=== PATIENT | female | born 1990 | race Two or more races ===

== ENCOUNTER 2025-03-12 09:08 | Emergency (ER) | payer MEDICAID, SELFPAY ==
[2025-03-12 09:09] VITALS: BMI 43.5
[2025-03-12 09:23] VITALS: BP 159/90; PULSE 97; RESP 18; TEMP 36.3; O2SAT 97
--- NOTE | 2025-03-12 09:25 | XR_ITS ---
Examination: Complete OB ultrasound greater than 14 weeks Date and time of exam: March 12, 2025 0950 hours INDICATIONS: Patient fell today with into the pelvis, pelvic pain Findings: Viable intrauterine single fetus with single amniotic sac presentation cephalic Cardiac motion 148 BPM Placenta posterior fundal grade 1 no abruption Amniotic fluid volume adequate Cervix 3.4 cm Right ovary 4.4 cm arterial flow Left ovary 4.0 cm arterial flow. Composite estimated gestational age based on BPD, head circumference, abdominal circumference, femur length is 17 weeks 5 days Estimated weight 201 g. Survey of intracranial anatomy, spinal anatomy, abdominal anatomy, four-chamber heart performed with no abnormalities identified. Impression: Viable intrauterine gestation cephalic presentation.
--- NOTE | 2025-03-12 09:26 | EDNOTE_ITS ---
ED OB Contraction Preg RMI/HPI General Chief complaint: Fall Stated complaint: FALL, HIT ABD, 19 WEEKS Time Seen by Provider: 03/12/25 09:13 Source: patient Arrival date/time: 03/12/25 09:08 34-year-old female with no known medical history presents to the emergency room with a chief complaint of a ground-level fall and tenderness to her pelvic area. Patient is currently 19 weeks . Mode of arrival: ambulatory Limitations: no limitations Related Data Home Medications ?Medication ?Instructions ?Recorded ?Confirmed prenat.vits,mireille,[id number] 1 tab PO QDAY 04/07/23 04/07/23 Previous Rx's ?Medication ?Instructions ?Recorded nifedipine 30 mg tablet,extended 60 mg (2 x 30 mg) PO QDAY 30 days 04/09/23 release 24 hr #60 tabs Allergies Allergy/AdvReac Type Severity Reaction Status Date / Time No Known Allergies Allergy Verified 03/12/25 09:10 Review of Systems Review of Systems Systems Reviewed: All systems reviewed, normal except as documented Constitutional Constitutional: Reports system reviewed and no additional complaints, except as documented, Denies fatigue, Denies fever(s), Denies headache(s) and Denies weakness Eyes Eyes: Reports system reviewed and no additional complaints, except as documented, Denies blurry vision and Denies change in vision ENT Ears, Nose, Mouth, and Throat: Reports system reviewed and no additional complaints, except as documented, Denies otalgia, Denies headache(s), Denies nasal congestion, Denies throat swelling and Denies vertigo Cardiovascular Cardiovascular: Reports system reviewed and no additional complaints, except as documented, Denies chest pain, Denies dyspnea and Denies dyspnea on exertion Respiratory Respiratory: Reports system reviewed and no additional complaints, except as documented, Denies chest congestion, Denies cough, Denies dyspnea, Denies dyspnea on exertion and Denies wheezing Gastrointestinal Gastrointestinal: Reports system reviewed and no additional complaints, except as documented, Denies abdominal pain, Denies cramping, Denies nausea and Denies vomiting Genitourinary Genitourinary: Reports system reviewed and no additional complaints, except as documented Musculoskeletal Musculoskeletal: Reports system reviewed and no additional complaints, except as documented and Denies back pain Integumentary/Breasts Skin/Breast: Reports system reviewed and no additional complaints, except as documented and Denies wounds Neurologic Neurologic: Reports system reviewed and no additional complaints, except as documented, Denies confusion, Denies headache(s), Denies lack of coordination, Denies vertigo and Denies weakness Psychiatric Psychiatric: Reports system reviewed and no additional complaints, except as documented, Denies anxiety, Denies confusion, Denies depression, Denies paranoia, Denies suicidal ideation and Denies tactile hallucinations Endocrine Endocrine: Reports system reviewed and no additional complaints, except as documented and Denies fatigue Hematologic/Lymphatic Hematologic/Lymphatic: Reports system reviewed and no additional complaints, except as documented and Denies lymphadenopathy Allergic/Immunologic Allergic/Immunologic: Reports system reviewed and no additional complaints, except as documented, Denies throat swelling, Denies urticaria and Denies wheezing Past Medical History Past Medical History NEUROLOGIC: Negative Neurological Disorders, Cerebrovascular Accident, Transient Ischemic Attacks (TIA), Dementia, Alzheimer's Disease, Parkinson's Disease, Brain Tumor, Meningitis, Seizures, Epilepsy, Multiple Sclerosis, Cerebral Palsy, Amyotrophic Lateral Sclerosis (ALS/Nikki Gehrig's), Guillain-[place] Syndrome, Spina Bifida, Paralysis, Peripheral Neuropathy, Cerrato's Palsy, Subdural Hematoma, Migraine, Head Trauma, Spinal Cord Injury or Traumatic Brain Injury CARDIAC: Positive Cardiac Disorders and Hypertension (in last ); Negative Congestive Heart Failure RESPIRATORY: Negative Chronic Obstructive Pulmonary Disease (COPD), Asthma or Bronchitis GASTROINTESTINAL: Positive Gastrointestinal Disorders (hx gallstones) and Obesity; Negative Hepatitis, Cirrhosis, Pancreatitis, Celiac Disease, Gall Bladder Disease, Gastrointestinal Bleed, Esophageal Varices, Castle's Esophagus, Colitis, Ulcerative Colitis, Diverticulitis, Diverticulosis, Ulcer, Colorectal Cancer, Irritable Bowel, Crohn's Disease, Obstructive Bowel, Hiatal Hernia, Hemorrhoids or Gastroesophageal Reflux Disease GENITOURINARY: Negative Genitourinary Disorders, Renal Disease, Kidney Stones, Polycystic Kidney Disease, Neurogenic Bladder, Inguinal Hernia, Dialysis, Prostate Cancer or Benign Prostatic Hyperplasia REPRODUCTIVE: Negative Breast Cancer, Endometriosis, Pelvic Inflammatory Disease, Previous Pregnancies, Testicular Cancer or Uterine Prolapse MUSCULOSKELETAL: Negative Musculoskeletal Disorders, Muscular Dystrophy or Bone Cancer ENT: Negative Cataracts, Glaucoma, Blind, Retinal Detachment, Macular Degeneration, Ear Infection, Deafness, Head Trauma or Eye Prosthesis ENDOCRINE: Positive Endocrine Disorders; Negative Diabetes Mellitus Type 1, Diabetes Mellitus Type 2, Hypoglycemia, [place]'s Syndrome, [place]iver[place]'s Disease, Hyperthyroidism, Hypothyroidism, Parathyroid Disease, Pituitary Disease, Systemic Lupus Erythematosus, Syndrome of Inappropriate Antidiuretic Hormone (SIADH), Adrenal Disease or Graves' Disease HEMATOLOGIC: Positive Anemia; Negative Blood Disorders, Leukemia, Hemophilia, Thalassemia, Sickle Cell Disease or Clotting Problems PSYCHO/SOCIAL: Negative Psychiatric Problems, Schizophrenia, Recreational Drug Use, Bipolar Disorder, Depression, Anxiety, Behavior Problems, Self-Mutilation, Attention Deficit Disorder, Attention Deficit Hyperactivity Disorder, Depression, Post Traumatic Stress Disorder or Eating Disorder OTHER HISTORY: Negative Hospitalization, Autoimmune Disease, Down Syndrome, Autism, Developmental Delay, Shingles, Falls, Blood Transfusions, Blood Transfusion Reaction, Anesthesia Reactions, Organ Transplant, Chemotherapy, Radiation Therapy, Hyperbaric Therapy, MRSA, VRSA, Vancomycin-Resistant En terococci, Human Immunodeficiency Virus (HIV), Chicken Pox, Measles, Mumps, Rubella (Qatari Measles), Pertussis, Clostridium Difficile, Cancer, Breast Cancer, Cervical Cancer, Colorectal Cancer, Lung Cancer, Ovarian Cancer, Prostate Cancer or Testicular Cancer Family History FAMILY HISTORY: Positive Family Gastrointestinal Problems (father,mother, sister gallbladder issues); Negative Family Psychiatric Problems, Family Respiratory Disorders, Family Cardiac Disorders, Family Cancer, Family Surgery or Family Anesthesia Reaction Surgical History SURGICAL: Negative Cardiac Surgery, Open Heart Surgery, Coronary Artery Bypass Graft, Valve Replacement, Vascular Surgery, Coronary Stent, Cardiac Catheterization, Endocrine Surgery, Thyroidectomy, Ear Surgery, Tympanostomy Tube, Eye Surgery, Nose Surgery, Oral Surgery, Tonsillectomy, Adenoidectomy, Cochlear Implant, Corneal Transplant, Abdominal Surgery, Gastric Bypass Surgery, Gastrostomy, Bowel Surgery, Nephrectomy, Transurethral Resection, Section or Organ Transplant Social History SMOKING STATUS: Never smoker ED Exam General Limitations: Present no limitations General appearance: Present alert and in no apparent distress Head Head exam: Present atraumatic Eye Eye exam: Present normal appearance, PERRL and EOMI ENT ENT exam: Present normal exam, normal oropharynx and mucous membranes moist Neck Neck exam: Present normal inspection, full ROM and trachea midline Chest Chest inspection: Present normal inspection and symmetric chest wall rise Respiratory Respiratory exam: Present normal lung sounds bilaterally Cardiovascular Cardiovascular exam: Present regular rate, normal rhythm and normal heart sounds Abdominal Exam Abdominal exam: Present soft, tenderness and normal bowel sounds Abdominal tenderness: Present suprapubic and mild Extremities Exam Extremities exam: Present normal inspection and full ROM Back Exam Back exam: Present normal inspection and full ROM Neurological Exam Neurological exam: Present alert, oriented X3 and CN II-XII intact Psychiatric Psychiatric exam: Present normal affect and normal mood Skin Skin exam: Present warm, dry, intact and normal color Course Quality Measures none Orders Category Date Time Status US OB >= 14 weeks Fetus Stat Exams 03/12/25 09:25 Completed ABO/RH Type Stat Lab 03/12/25 10:22 Completed Beta HCG,Quantitative Stat Lab 03/12/25 10:22 Completed CBC Stat Lab 03/12/25 10:22 Completed CMP [Comprehensive Metabolic Panel] Stat Lab 03/12/25 10:22 Completed UA [Urinalysis] Stat Lab 03/12/25 09:45 Completed Vital Signs Vital signs: Vital Signs Temperature 97.4 F 03/12/25 09:23 Pulse Rate 97 03/12/25 09:23 Respiratory Rate 18 03/12/25 09:23 Blood Pressure 159/90 H 03/12/25 09:23 Pulse Oximetry (%) 97 03/12/25 09:23 Oxygen Delivery Method Room Air 03/12/25 09:23 OB/Uterine Contractions MDM Narrative MDM Narrative:: 34-year-old female with no known medical history presents to the emergency room with a chief complaint of a ground-level fall and tenderness to her pelvic area. Patient is currently 19 weeks . Patient is hemodynamically stable and in no apparent distress Physical examination shows mild abdominal cramping and pain. OB ultrasound was completed and shows a viable heart tones are 140 bpm. Patient was discharged and educated to follow-up with primary care provider in the next 24 to 48 hours and return to the emergency room for any evidence of worsening signs or symptoms Patient data External records reviewed:: [facility] previous records Clinical information provided by:: patient Social determinants that could affect healthcare access:: none Patient has the following chronic illnesses:: No chronic illness How is presenting disease/condition affected by chronic disease/condition?: no chronic disease Evaluation data The following diagnostics were reviewed and interpreted by me:: lab results and radiology exam(s) Lab and/or radiology exams considered but not ordered:: Labs and radiology exams considered in order Interpretation Summary: Ultrasound OB-Findings: Viable intrauterine single fetus with single amniotic sac presentation cephalic Cardiac motion 148 BPM Placenta posterior fundal grade 1 no abruption Amniotic fluid volume adequate Cervix 3.4 cm Right ovary 4.4 cm arterial flow Left ovary 4.0 cm arterial flow. Composite estimated gestational age based on BPD, head circumference, abdominal circumference, femur length is 17 weeks 5 days Estimated weight 201 g. Survey of intracranial anatomy, spinal anatomy, abdominal anatomy, four-chamber heart performed with no abnormalities identified. Impression: Viable intrauterine gestation cephalic presentation. Medications / Prescriptions Medications or Prescriptions considered but not ordered:: No medication given Medication administrations:: No medication given Consultations Consultation(s) initiated? (list below): No Diagnosis OB Contractions Differential Diagnosis: other (Abdominal cramping with /threatened /vaginal bleeding) Most likely diagnosis given after review of the tests above:: Abdominal cramping with Admission Indicated Admission indicated?: not indicated Explain why admission is indicated or not indicated:: N/A Admission Request Was there a request for admission?: No Disposition Plan Disposition Plan: Discharge Discharge Attestation Discharge Attestation: The patient and all family members were given an opportunity to ask questions and understood the discharge instructions. Discharge instructions specifically effects, indications for sooner follow up or return to the emergency department, and the expected course of current diagnosis. 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 Cardiac heart tones are 148 bpm. Your is in good standing. For any evidence of worsening signs or symptoms return the emergency room immediately Print Language: Telugu Stand Alone Forms: Hedy Award Info., Patient Portal Info Letter PA/BLOCK PRESS OPERATOR Supervising Physician PA/BLOCK PRESS OPERATOR Supervising Physician: Dr. Watkins
[2025-03-12 09:59] LABS: Collection Type, Urine Clean Catch
[2025-03-12 10:03] LABS: Bacteria,Urine Rare; Bilirubin,Urine Negative (Negative); Blood,Urine Negative (Negative); Clarity,Urine Clear (Clear/Hazy); Color,Urine Lt-Yellow (Lt Yel-Yel); Glucose, Urine Negative (Negative); Ketones,Urine Negative (Negative); Leukocyte Esterase,Urine Negative (Negative); Nitrite,Urine Negative (Negative); PH,Urine 5.5 (5.0-7.0); Protein,Urine Trace (Neg - Trace); RBC,Urine 4 /hpf (0-3); Specific Gravity,Urine 1.033 (1.001-1.035); Squamous Epithelial Cell,Urine 2 /hpf (0-5); Urobilinogen,Urine Negative mg/dL (0.0-1.0); WBC,Urine 1 /hpf (0-5)
[2025-03-12 10:52] LABS: Basophils % (Auto) 0 % (0-2.5); Eosinophils # (Auto) 0.4 Thou/mm3 (0.0-0.5); Eosinophils % (Auto) 4 % (0-10); Hematocrit 32.8 % (36.0-46.0); Hemoglobin 10.8 g/dL (12.0-16.0); Immature Granulocytes % (Auto) 1 % (0-0); Immature Granulocytes Auto 0.08 Thou/mm3 (0.00-0.00); Lymphocytes # (Auto) 2.8 Thou/mm3 (1.0-4.8); Lymphocytes % (Auto) 25 % (10-50); Mean Corpuscular HGB Conc 32.9 g/dl (31.0-37.0); Mean Corpuscular Hemoglobin 27.1 pg (25.0-35.0); Mean Corpuscular Volume 82 fL (80-100); Monocytes # (Auto) 0.5 Thou/mm3 (0.0-0.8); Monocytes % (Auto) 5 % (0-12); Neutrophils # (Auto) 7.2 Thou/mm3 (1.8-7.7); Neutrophils % (Auto) 66 % (37-80); Nucleated Red Blood Cell % 0 /100 WBC (0); Platelet Count 246 Thou/mm3 (140-440); RDW Standard Deviation 43.7 fL (36.4-46.3); Red Blood Count 3.98 Miln/mm3 (4.00-5.20); White Blood Count 11.1 Thou/mm3 (3.6-11.0)
[2025-03-12 11:21] LABS: Alanine Aminotransferase 14 U/L (10-49); Albumin, Serum 3.9 gm/dL (3.5-5.0); Albumin/Globulin Ratio 1.4 (1.2-2.2); Alkaline Phosphatase 80 U/L (46-116); Anion Gap 10 (7-16); BUN/Creatinine Ratio 15 Ratio (12-20); Bilirubin,Total 0.2 mg/dL (0.3-1.2); Blood Urea Nitrogen 9 mg/dL (9-23); Calcium 9.2 mg/dL (8.3-10.6); Calcium (Corrected) 9.3 mg/dL (8.5-10.1); Carbon Dioxide 22.5 mMol/L (20.0-31.0); Chloride 105 mMol/L (98-107); Creatinine (Component) 0.6 mg/dL (0.6-1.3); Estimated Creatinine Clearance 173.1 mL/min (>60); Globulin 2.7 gm/dL (2.3-3.5); Glucose 79 mg/dL (74-106); Osmolality,Calculated 271 (275-295); Potassium 4.2 mMol/L (3.4-5.1); Sodium 137 mMol/L (136-145); Total Protein 6.6 gm/dL (5.7-8.2); eGFR > 60 See Note
[2025-03-12 11:52] LABS: Beta HCG,Quantitative 11094 mIU/mL (<5.0)
[2025-03-12 12:26] VITALS: BP 136/85; PULSE 70; RESP 18; TEMP 36.9; O2SAT 99
== END 2025-03-12 12:28 | disposition home or self-care (01) ==
PROVIDERS: Nurse Practitioner Family; Emergency Provider Family Medicine
DX: O26.892 Other specified pregnancy related conditions, second trimester (principal); R10.2 Pelvic and perineal pain; W18.30XA Fall on same level, unspecified, initial encounter; Z3A.17 17 weeks gestation of pregnancy
CPT/HCPCS: 36415; 76805; 80053; 81001; 84702; 85025; 86900; 86901; 99284

== ENCOUNTER 2025-06-12 14:42 | Outpatient (AMB) | payer MEDICAID, SELFPAY ==
--- NOTE | 2025-06-12 15:07 | OBCLNT_ITS ---
Vital Signs 06/12/25 15:08 Height 1.68 m Height Method Stated Weight 131.258 kg Weight Measurement Method Standing Scale BMI 46.5 BP 134/85 H Blood Pressure Source Automatic Cuff Blood Pressure Location Left Upper Arm Position Sitting Respiration 16 Pulse 85 Pulse Source Monitor Temp 97.2 F Temp Source Oral Pulse Oximetry (%) 98 Oxygen Delivery Method Room Air Allergies/Home Meds Allergies & Medications Allergies No Known Allergies Allergy (Verified 06/12/25 15:09) Medication Reconciliation prenat.vits,mireille,[id number] 1 tab PO QDAY 04/07/23 [History Confirmed 06/12/25] nifedipine 30 mg tablet,extended release 24 hr 60 mg (2 x 30 mg) PO QDAY 30 days #60 tabs 04/09/23 [Rx Confirmed 06/12/25] nystatin 100,000 unit/gram topical cream 1 applic topical BID #1 tube 06/12/25 [Rx] vitamin-ferrous fumarate 28 mg iron-folic acid 800 mcg tablet ( Vitamins with Minerals) 1 tab PO QDAY #60 tabs 06/12/25 [Rx] triamcinolone acetonide 0.5 % topical cream 1 applic topical BID #1 tube 06/12/25 [Rx] Intake Visit Data Collection New Patient or Established: Established Patient (seen at [facility] within 3 years) Reason for Visit:: OB TRANSFER Seen by Clinical Staff ONLY (RN/MA): No Patient Access Representative Required: No Do You Feel Safe at Home: Yes Authorities Contacted: N/A PCP or OBGYN visit in last 3 months: Yes Hx Now: Yes Are you currently on any form of Control: No Pain Present Currently: No Pain Scale Used: Leon-Fierro/Numerical Pain scale:: 0 Smoking Status Smoking Status: Never smoker Questionnaires Covid-19 Vaccine Questionnaire Has patient been vacinated for Covid-19 Have you been vacinated for Covid-19: Yes PHQ-9 PHQ-2 Over the last 2 weeks, how often have you been bothered by any of the following problems? 1. Little interest or pleasure in doing things: not at all 2. Feeling down, depressed, or hopeless: not at all Total score: 0 PHQ-9 3. Trouble falling or staying asleep, or sleeping too much: Not at all 4. Feeling tired or having little energy: Not at all 5. Poor appetite or overeating: Not at all 6. Feeling bad about yourself - or that you are a failure or have let yourself or your family down: Not at all 7. Trouble concentrating on things, such as reading the newspaper or watching television: Not at all 8. Moving or speaking so slowly that other people could have noticed? - Or the opposite - being so fidgety or restless that you have been moving around a lot more than usual: not at all 9. Thoughts that you would be better off or of hurting yourself in some way: Not at all Total score: 0 If you checked off any problems, how difficult have these problems made it for you to do your work, take care of things at home, or get along with other people?: not difficult at all Source: Developed by Drs. Marcos Mcdermott, Jacinta Miller, Darrick Caldwell and colleagues, with an educational giuseppe from [email or web address]. Depression screen completed yes Social History Living Situation History Marital Status: Lives With: Family Housing: House Tobacco History Smoking Status: Never smoker Second Hand Smoke Exposure: No Alcohol History Alcohol Intake: Never Domestic Abuse History Do You Feel Safe at Home: Yes History of Present Illness HPI Narrative 34-year-old 6 para 5 for OBI. Patient had 1 visit at [facility] [place] as an intake and that was it. She has not had labs done at all unsure dates. She thought November sometime. First ultrasound was March 12, 2025 patient had an ultrasound at [facility]. Fetus was 17 weeks 5 and this gave a due date of August 14, 2025. Patient reports that she had gestational hypertension with the last otherwise she has not had any problems. She denies any surgeries. She denies chronic illness and she also does denies social habits. Denies leaking, bleeding, contractions. Patient is here with her partner. 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: Past Medical History Past Medical History: No Hx Neurological Disorders, No Hx Hypothyroidism, No Hx Hyperthyroidism, No Hx Breast Cancer, Yes Hx Cardiac Disorders, Yes Hx Hypertension (in last ), No Hx Cancer, No Hx Blood Disorders, Yes Hx Anemia, Yes Hx Gastrointestinal Disorders (hx gallstones), No Hx Renal Disease, No Hx Diabetes Mellitus Type 1, No Hx Diabetes Mellitus Type 2 and No Psychiatric Problems OB Initial Visit OB Flowsheet OB Flowsheet Initial Weight: Not Recorded Date -?-?-?-?-?-?-?-?-?-?-?-?- EGA Weight BP Alb Glu CTX Pres Fundal ht FHR Mov Dilation Station Effacement Hx Notes Visit Note 06/12/25 -?-?-?-?-?-?-?-?-?-?-?-?- 31w 1d 131.258 kg 134/85 absent unknown 31 134 active 34-year-old 6 para 5 for OBI. Poor dates. First ultrasound March 12, 2025. Patient was 17 weeks 5 and this gave a due date August 14, 2025. Patient's not had any care. She works in the [employer]. Complains of rash on her right upper forearm it looks like tinea. Thi rd trimester labs today with 1 hour GTT and NIPT and carrier screens. Scheduled urgent ultrasound appointment with MFM for growth. I refilled prenatals. And then gave patient a prescription of triamcinolone and nystatin to be applied to the affected area twice daily. I discussed about care good hygiene handwashing and keep the area clean and dry. Discussed labor precautions and kick count. Patient declined Tdap. Return in 2 weeks OB check Menstrual History Menstrual reliability: approximate (month known) Flow: normal Menstrual regularity: regular Monthly: Yes Age at menarche: 13 On control pills at conception: No OB History : 6 Para: 5 Hx # Pregnancies: 0 Hx Total # of Abortions (Spontaneous & Elective): 0 # of Living Children: 5 Delivery History 1st : Child's name: NOT PROVIDED date: 02/12/06 sex: male Gestational age at delivery (weeks): 40 Delivery type: vaginal Delivery complications: NA History of depression before or after : No 2nd : Child's name: NOT PROVIDED date: 01/10/14 sex: female Gestational age at delivery (weeks): 40 Delivery type: vaginal History of depression before or after : No 3rd : Child's name: NOT PROVIDED date: 09/13/17 sex: female Gestational age at delivery (weeks): 40 Delivery type: vaginal History of depression before or after : No 4th : Child's name: NOT PROVIDED date: 11/30/21 sex: female Gestational age at delivery (weeks): 40 Delivery type: vaginal History of depression before or after : No 5th : Child's name: NOT PROVIDED date: 04/08/23 sex: female Gestational age at delivery (weeks): 40 Delivery type: vaginal History of depression before or after : No Infection History & Risk Evaluation History of STDs: none HIV risk evaluation: low risk Hepatitis B risk evaluation: low risk Patient or partner has history of Genital Herpes: No Varicella/chicken pox status: immunized Genetic Screening & History Genetic Screening/Teratology Counseling - Includes patient, baby's father, or anyone in either family with: 1. Patient's age 35 years or older as of estimated date of delivery: Yes 2. Thalassemia (Central African, Tajik, Mediterranean, or Background); MCV less than 80: No 3. Neural Tube Defect (Meningomyelocele, Spina Bifida, or Anencephaly): No 4. Congenital Heart Defect: No 5. Down Syndrome: No 6. Wang-Sachs (Ashkenazi Congregation, Cajun, Slovak Grenadian): No 7. Vivien Disease (Ashkenazi Congregation): No 8. Familial Dysautonomia (Ashkenazi Congregation): No 9. Sickle Cell Disease or Trait (): No 10. Hemophilia or other blood disorders: No 11. Muscular Dystrophy: No 12. Cystic Fibrosis: No 13. Mcintosh's Chorea: No 14. Mental Retardation/Autism: Yes (BOTH SIDES ) 15. Other inherited genetic or chromosomal disorder: No 17. Patient or baby's father had a child with defects not listed above: No 18. Recurrent loss or a stillbirth: No 19. Medications (including supplements, vitamins, herbs or otc drugs)/illicit/ recreational drugs/alcohol since last menstrual period: No 20. Any other: No Infection History 1. Live with someone with TB or exposed to TB: No 2. Rash or viral illness since last menstrual period: No 3. Hepatitis B,C: No Other (see comments) Source: [employer] Review of Systems Review of Systems Systems Reviewed: All systems reviewed, normal except as documented Exam General Limitations: no limitations General Appearance: alert, in no apparent distress, comfortable, cooperative, healthy appearing, well developed and well groomed Head Head exam: atraumatic, normocephalic and normal inspection Chest Chest inspection: Present normal inspection and symmetric chest wall rise Resp Respiratory exam: Present normal lung sounds bilaterally Card Cardiovascular exam: Present regular rate, normal rhythm and normal heart sounds Abdominal Abdominal exam: Present soft and normal bowel sounds Psych Psychiatric exam: Present normal affect and normal mood Office Procedures OB Clinic LOC & Office Proc's Nursing/Assessment Patient Status: Established Patient OB Clinic Nursing Assessment: Medication Reconciliation, Update PMH in EMR and Vital Signs OB Clinic Coordination of Care: Education Complex Pt/Fam, Consent,records obtained, informed consent, Lab and Imaging orders, Results/Orders obtained and Staff clarify orders Special Needs: Heart tones Established Patient Charge Established Patient Point Assignment: 115 Established Patient Point Charge: EP Level 3 (80-115) Assessment & Plan Diagnosis / Problem List (1) Advanced maternal age (AMA) in : Status: Acute (2) Obesity complicating , third trimester: Status: Acute (3) Encounter for supervision of high risk in third trimester, antepartum: Status: Acute Plan Schedule MFM sono. OB panel today with NIPT and carrier screens. 1 hour GTT. Discussed labor precautions increase fluids. Patient declined Tdap. I gave her prescription for triamcinolone 1% and nystatin 1000 mg to be applied to affected area on right arm twice daily. I discussed comfort measures and and care of tinea. Return in 2 weeks OB check Additional Plan Follow Up: 2 Weeks (obc)
[2025-06-12 15:08] VITALS: BP 134/85; PULSE 85; RESP 16; TEMP 36.2; O2SAT 98; BMI 46.5
== END 2025-06-12 15:35 | disposition home or self-care (01) ==
LOC: HODSOBC 14:42
PROVIDERS: Supervising Provider Advanced Practice Midwife; Visit Provider Advanced Practice Midwife
DX: O09.523 Supervision of elderly multigravida, third trimester (principal); O09.893 Supervision of other high risk pregnancies, third trimester; O99.213 Obesity complicating pregnancy, third trimester; O09.43 Supervision of pregnancy with grand multiparity, third trimester; Z3A.31 31 weeks gestation of pregnancy; Z28.21 Immunization not carried out because of patient refusal
CPT/HCPCS: 99213; G0463

== ENCOUNTER 2025-06-19 19:00 | Emergency (ER) | payer MEDICAID, SELFPAY ==
[2025-06-19 19:10] VITALS: BP 146/84; PULSE 84; RESP 18; TEMP 36.4; O2SAT 95
--- NOTE | 2025-06-19 19:24 | XR_ITS ---
Examination: Abdomen sonogram, Limited Date and time of exam: June 19, 2025 1957 hrs. Indications: Right upper abdominal pain and vomiting beginning today Technique: Real-time mac scale transabdominal sonographic images of the upper abdomen obtained. Findings: Multiple gallstones Gallbladder wall 0.37 cm no edema Common bile duct 0.3 cm Pancreatic head 3.5 cm Liver 18.7 cm fatty infiltration no focal liver lesions Normal hepatopedal portal venous flow Patent IVC Impression: Cholelithiasis, negative for cholecystitis Moderate hepatomegaly fatty infiltration no focal liver lesions
--- NOTE | 2025-06-19 19:24 | PD.EDRME ---
Rapid Medical Screening Exam [facility] Arrival date/time: 06/19/25 19:00 34F with no significant PMH presents to ED with 1 day of RUQ pain and N/V. Patient has known gallstones. Patient is also 32 weeks , but denies lower ab pain and vaginal bleeding. Chief Complaint: Abdominal Pain Vital signs: Vital Signs Temperature 97.6 F 06/19/25 19:10 Pulse Rate 84 06/19/25 19:10 Respiratory Rate 18 06/19/25 19:10 Blood Pressure 146/84 H 06/19/25 19:10 Pulse Oximetry (%) 95 06/19/25 19:10 Oxygen Delivery Method Room Air 06/19/25 19:10
[2025-06-19 19:51] LABS: Basophils # (Auto) 0.0 Thou/mm3 (0.0-0.2); Basophils % (Auto) 0 % (0-2.5); Eosinophils # (Auto) 0.2 Thou/mm3 (0.0-0.5); Eosinophils % (Auto) 2 % (0-10); Hematocrit 28.8 % (36.0-46.0); Hemoglobin 9.0 g/dL (12.0-16.0); Immature Granulocytes Auto 0.26 Thou/mm3 (0.00-0.00); Lymphocytes # (Auto) 2.9 Thou/mm3 (1.0-4.8); Lymphocytes % (Auto) 23 % (10-50); Mean Corpuscular HGB Conc 31.3 g/dl (31.0-37.0); Mean Corpuscular Hemoglobin 23.9 pg (25.0-35.0); Mean Corpuscular Volume 77 fL (80-100); Monocytes # (Auto) 0.7 Thou/mm3 (0.0-0.8); Monocytes % (Auto) 5 % (0-12); Neutrophils # (Auto) 8.5 Thou/mm3 (1.8-7.7); Neutrophils % (Auto) 68 % (37-80); Nucleated Red Blood Cell # 0.03 Thou/mm3 (0.00-0.00); Nucleated Red Blood Cell % 0 /100 WBC (0); Platelet Count 309 Thou/mm3 (140-440); RDW Standard Deviation 42.3 fL (36.4-46.3); Red Blood Count 3.76 Miln/mm3 (4.00-5.20); White Blood Count 12.5 Thou/mm3 (3.6-11.0)
[2025-06-19 20:06] LABS: Alanine Aminotransferase 10 U/L (10-49); Albumin, Serum 4.0 gm/dL (3.5-5.0); Albumin/Globulin Ratio 1.5 (1.2-2.2); Alkaline Phosphatase 105 U/L (46-116); Amylase 92 U/L (30-118); Anion Gap 11 (7-16); Aspartate Amino Transferase 16 U/L (0-34); BUN/Creatinine Ratio 12 Ratio (12-20); Bilirubin,Total 0.3 mg/dL (0.3-1.2); Blood Urea Nitrogen 6 mg/dL (9-23); Calcium 9.0 mg/dL (8.3-10.6); Calcium (Corrected) 9.0 mg/dL (8.5-10.1); Carbon Dioxide 23.2 mMol/L (20.0-31.0); Chloride 106 mMol/L (98-107); Creatinine (Component) 0.5 mg/dL (0.6-1.3); Globulin 2.7 gm/dL (2.3-3.5); Glucose 91 mg/dL (74-106); Osmolality,Calculated 277 (275-295); Potassium 3.6 mMol/L (3.4-5.1); Sodium 140 mMol/L (136-145); Total Protein 6.7 gm/dL (5.7-8.2); eGFR > 60 See Note
[2025-06-19 20:16] LABS: Collection Type, Urine Clean Catch
[2025-06-19 20:19] LABS: Bilirubin,Urine Negative (Negative); Blood,Urine Negative (Negative); Clarity,Urine Clear (Clear/Hazy); Color,Urine Lt-Yellow (Lt Yel-Yel); Glucose, Urine Negative (Negative); Ketones,Urine Negative (Negative); Leukocyte Esterase,Urine Positive (Negative); Nitrite,Urine Negative (Negative); PH,Urine 6.0 (5.0-7.0); Protein,Urine Negative (Neg - Trace); RBC,Urine 2 /hpf (0-3); Specific Gravity,Urine 1.020 (1.001-1.035); Squamous Epithelial Cell,Urine 5 /hpf (0-5); Urobilinogen,Urine Negative mg/dL (0.0-1.0); WBC,Urine 1 /hpf (0-5)
[2025-06-19 20:24] VITALS: BP 147/85; PULSE 86; RESP 19; TEMP 36.7
--- NOTE | 2025-06-19 20:36 | EDNOTE_ITS ---
ED Abdominal Pain RME/HPI General Chief Complaint: Abdominal Pain Stated complaint: RUQ ABD PAIN, 32 WEEKS PREG Time seen by provider: 06/19/25 21:27 Arrival date/time: 06/19/25 19:00 RME / HPI RME / HPI narrative: 06/19/25 19:00 34F with no significant PMH presents to ED with 1 day of RUQ pain and N/V. Patient has known gallstones. Patient is also 32 weeks , but denies lower ab pain and vaginal bleeding. DR. COOL MAIN ED EVALUATION: 34 y/o 32-week female with Hx of known gall stones presents to ED c/o RUQ abdominal pain x 1 day. Patient states as her previous pregnancies progressed, so did the pain. Patient is still currently working in the [employer]. Related Data Home Medications ?Medication ?Instructions ?Recorded ?Confirmed prenat.vits,mireille,nvy-wwnz-sfnyn 1 tab PO QDAY 04/07/23 06/12/25 Previous Rx's ?Medication ?Instructions ?Recorded nifedipine 30 mg tablet,extended 60 mg (2 x 30 mg) PO QDAY 30 days 04/09/23 release 24 hr #60 tabs nystatin 100,000 unit/gram topical 1 applic topical BI D #1 tube 06/12/25 cream vitamin-ferrous fumarate 1 tab PO QDAY #60 ta bs 06/12/25 28 mg iron-folic acid 800 mcg tablet ( Vitamins with Minerals) triamcinolone acetonide 0.5 % 1 applic topical BID #1 tube 06/12/25 topical cream Allergies Allergy/AdvReac Type Severity Reaction Status Date / Time No Known Allergies Allergy Verified 06/12/25 15:09 Review of Systems Review of Systems Systems Reviewed: All systems reviewed, normal except as documented Past Medical History Past Medical History CARDIAC: Positive Cardiac Disorders and Hypertension (in last ) GASTROINTESTINAL: Positive Gastrointestinal Disorders (hx gallstones) and Obesity ENDOCRINE: Positive Endocrine Disorders Family History FAMILY HISTORY: Positive Family Gastrointestinal Problems (father,mother, sister gallbladder issues) ED Exam Narrative Physical exam: Generally patient is alert and oriented x 3 and in no obvious distress, heart regular rate and rhythm, lungs clear to auscultation bilaterally, abdomen is gravid with right upper quadrant abdominal tenderness without rebound or Nevarez sign. Extremities show no edema peripherally., Neurologic exam shows a [place] Coma Scale of 15. Course Quality Measures none Orders Category Date Time Status US gall bladder Stat Exams 06/19/25 19:24 Completed Amylase Stat Lab 06/19/25 19:42 Completed CBC Stat Lab 06/19/25 19:42 Completed CMP [Comprehensive Metabolic Panel] Stat Lab 06/19/25 19:42 Completed Urinalysis Stat Lab 06/19/25 20:00 Completed Urine Culture Stat Lab 06/19/25 20:00 Received Vital Signs Vital signs: Vital Signs Temperature 97.6 F 06/19/25 19:10 Pulse Rate 84 06/19/25 19:10 Respiratory Rate 18 06/19/25 19:10 Blood Pressure 146/84 H 06/19/25 19:10 Pulse Oximetry (%) 95 06/19/25 19:10 Oxygen Delivery Method Room Air 06/19/25 19:10 Abdominal Pain MDM MDM Narrative MDM Narrative:: Scribe Attestation: I, Sanjuana Cummings, am scribing for and in the presence of Dr. Cool. Provider Notation: Although this document has been carefully reviewed, there may still be some phonetic and other typographical errors. These errors are purely grammatical due to imperfections in the software program and should not be construed in any way to compromise the substance of the patient's medical care during this visit. I interpreted all labs. Gallbladder ultrasound showed evidence of stones but no wall thickening or Oriana-cholecystic fluid. No evidence of urine infection. Last blood pressure was 143/78. Patient was told that this blood pressure needs to be monitored closely by her MILITARY TECHNOLOGY MANAGER physician. Patient is to take Tylenol for pain. She was told that her gallbladder will need to be removed at some time but there is no indication for that tonight. Patient data External records reviewed:: [facility] previous records (Reviewed prior ED records from 03/12/25. Patient was seen for Abdominal cramping affecting .) Clinical information provided by:: patient Social determinants that could affect healthcare access:: none Patient has the following chronic illnesses:: Gallstones How is presenting disease/condition affected by chronic disease/condition?: exacerbated by Evaluation data The following diagnostics were reviewed and interpreted by me:: lab results and radiology exam(s) Lab and/or radiology exams considered but not ordered:: None Interpretation Summary: RADIOLOGY Gall Bladder US: Findings: Multiple gallstones Gallbladder wall 0.37 cm no edema Common bile duct 0.3 cm Pancreatic head 3.5 cm Liver 18.7 cm fatty infiltration no focal liver lesions Normal hepatopedal portal venous flow Patent IVC Impression: Cholelithiasis, negative for cholecystitis Moderate hepatomegaly fatty infiltration no focal liver lesions Medications / Prescriptions Medications or Prescriptions considered but not ordered:: None Medication administrations:: See above if any Consultations Consultation(s) initiated? (list below): No Diagnosis Differential diagnosis abdominal pain: abdominal pain, calculus of kidney, constipation, diverticulitis, gastroenteritis, pancreatitis, small bowel obstruction and other (Cholelithiasis, Cholecystitis) Most likely diagnosis given after review of the tests above:: None Admission Indicated Admission indicated?: not indicated Explain why admission is indicated or not indicated:: Patient does not meet admission criteria Admission Request Was there a request for admission?: No Disposition Plan Disposition Plan: Discharge Discharge Attestation Discharge Attestation: The patient and all family members were given an opportunity to ask questions and understood the discharge instructions. Discharge instructions specifically effects, indications for sooner follow up or return to the emergency department, and the expected course of current diagnosis. Patient condition: Stable Discharge Plan Plan Patient Disposition: HOME (Self Care) Prescriptions/Referrals Prescriptions/Med Rec: No Action triamcinolone acetonide 0.5 % cream 1 applic topical BID Qty: 1 1RF nystatin 100,000 unit/gram cream 1 applic topical BID Qty: 1 1RF vit-iron fum-folic ac [ Vitamin with Minerals] 28 mg iron- 800 mcg tablet 1 tab PO QDAY Qty: 60 3RF prenat.vits,mireille,[id number] Tablet 1 tab PO QDAY nifedipine 30 mg Tablet Extended Release 24hr 60 mg PO QDAY 30 Days Qty: 60 2RF Referrals: No Primary/Family,Physician [Primary Care Provider] - In 1 week Problem List Clinical Impression: Gallstones, Patient/Caregiver Discharge Instructions Additional Instructions: Follow-up with your MILITARY TECHNOLOGY MANAGER physician and/or primary care to keep an eye on blood pressure readings. You may take Tylenol for pain. Return to ER as needed or if condition worsens. Print Language: Italian Stand Alone Forms: Hedy Award Info., Patient Portal Info Letter
[2025-06-19 21:45] VITALS: BP 129/82; PULSE 70; RESP 19; TEMP 36.6; O2SAT 98
== END 2025-06-19 21:45 | disposition home or self-care (01) ==
PROVIDERS: Physician Assistant; Emergency Provider Emergency Medicine
DX: O26.613 Liver and biliary tract disorders in pregnancy, third trimester (principal); K80.20 Calculus of gallbladder without cholecystitis without obstruction; Z3A.32 32 weeks gestation of pregnancy
CPT/HCPCS: 36415; 76705; 80053; 81001; 82150; 85025; 87086; 99283

== ENCOUNTER 2025-07-01 15:27 | Outpatient (AMB) | payer MEDICAID, SELFPAY ==
--- NOTE | 2025-07-01 16:03 | AMB.OBVISIT ---
Vital Signs 07/01/25 16:10 Height 1.68 m Height Method Stated Weight 132.506 kg Weight Measurement Method Standing Scale BMI 46.9 BP 126/84 Blood Pressure Source Automatic Cuff Blood Pressure Location Left Upper Arm Position Sitting Respiration 18 Pulse 90 Pulse Source Monitor Temp 97.9 F Temp Source Oral Pulse Oximetry (%) 98 Oxygen Delivery Method Room Air Allergies/Home Meds Allergies & Medications Allergies No Known Allergies Allergy (Verified 07/01/25 16:11) Medication Reconciliation prenat.vits,mireille,irx-[id number]-ptxgn 1 tab PO QDAY 04/07/23 [History Confirmed 07/01/25] nifedipine 30 mg tablet,extended release 24 hr 60 mg (2 x 30 mg) PO QDAY 30 days #60 tabs 04/09/23 [Rx Confirmed 07/01/25] nystatin 100,000 unit/gram topical cream 1 applic topical BID #1 tube 06/12/25 [Rx Confirmed 07/01/25] vitamin-ferrous fumarate 28 mg iron-folic acid 800 mcg tablet ( Vitamins with Minerals) 1 tab PO QDAY #60 tabs 06/12/25 [Rx Confirmed 07/01/25] triamcinolone acetonide 0.5 % topical cream 1 applic topical BID #1 tube 06/12/25 [Rx Confirmed 07/01/25] ascorbic acid (vitamin C) 1,000 mg capsule 1,000 mg PO BID #60 caps 07/01/25 [Rx] ferrous sulfate 325 mg (65 mg iron) tablet 325 mg PO BID #60 tabs 07/01/25 [Rx] Intake Visit Data Collection New Patient or Established: Established Patient (seen at [facility] within 3 years) Reason for Visit:: CARE Seen by Clinical Staff ONLY (RN/MA): No Towboat Pilot Required: No Do You Feel Safe at Home: Yes Authorities Contacted: N/A PCP or OBGYN visit in last 3 months: Yes Hx Now: Yes Are you currently on any form of Control: No Pain Present Currently: No Pain Scale Used: Leon-Fierro/Numerical Pain scale:: 0 Smoking Status Smoking Status: Never smoker Questionnaires Covid-19 Vaccine Questionnaire Has patient been vacinated for Covid-19 Have you been vacinated for Covid-19: No PHQ-9 PHQ-2 Over the last 2 weeks, how often have you been bothered by any of the following problems? 1. Little interest or pleasure in doing things: not at all 2. Feeling down, depressed, or hopeless: not at all Total score: 0 PHQ-9 3. Trouble falling or staying asleep, or sleeping too much: Not at all 4. Feeling tired or having little energy: Not at all 5. Poor appetite or overeating: Not at all 6. Feeling bad about yourself - or that you are a failure or have let yourself or your family down: Not at all 7. Trouble concentrating on things, such as reading the newspaper or watching television: Not at all 8. Moving or speaking so slowly that other people could have noticed? - Or the opposite - being so fidgety or restless that you have been moving around a lot more than usual: not at all 9. Thoughts that you would be better off or of hurting yourself in some way: Not at all Total score: 0 Source: Developed by Drs. Marcos Mcdermott, Jacinta Miller, Darrick Caldwell and colleagues, with an educational giuseppe from [employer]. Depression screen completed yes Social History Living Situation History Lives With: Family Housing: House Tobacco History Smoking Status: Never smoker Second Hand Smoke Exposure: No Alcohol History Alcohol Intake: Never Domestic Abuse History Do You Feel Safe at Home: Yes [employer]: Past Medical History Past Medical History: No Hx Neurological Disorders, No Hx Hypothyroidism, No Hx Hyperthyroidism, No Hx Breast Cancer, Yes Hx Cardiac Disorders, Yes Hx Hypertension (in last ), No Hx Cancer, No Hx Blood Disorders, Yes Hx Anemia, Yes Hx Gastrointestinal Disorders (hx gallstones), No Hx Renal Disease, No Hx Diabetes Mellitus Type 1, No Hx Diabetes Mellitus Type 2 and No Psychiatric Problems Care OB Visit Log OB Flowsheet Initial Weight: Not Recorded Date <del>?</del> EGA Weight BP Alb Glu CTX Pres Fundal ht FHR Mov Dilation Station Effacement Hx Notes Visit Note 06/12/25 <del>?</del> 31w 1d 131.258 kg 134/85 absent unknown 31 134 active 34-year-old 6 para 5 for OBI. Poor dates. First ultrasound March 12, 2025. Patient was 17 weeks 5 and this gave a due date August 14, 2025. Patient's not had any care. She works in the [employer]. Complains of rash on her right upper forearm it looks like tinea. Third trimester labs today with 1 hour GTT and NIPT and carrier screens. Scheduled urgent ultrasound appointment with [facility] for growth. I refilled prenatals. And then gave patient a prescription of triamcinolone and nystatin to be applied to the affected area twice daily. I discussed about care good hygiene handwashing and keep the area clean and dry. Discussed labor precautions and kick count. Patient declined Tdap. Return in 2 weeks OB check 07/01/25 <del>?</del> 33w 6d 132.506 kg 126/84 absent unknown 33 134 active Reports movement. Denies labor complaints. Denies leaking, bleeding, contractions. Continue prenatals. Discussed diet, weight gain. Complains of increased back pain and ligament pain. 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 I gave vitamin C 500 p.o. twice daily as well. Discussed high iron foods. I discussed GDM diet with patient. Order 3-hour GTT. Patient will start disability July 02, 2025. 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 Note given to patient for disability. MEGHAN Calculator Estimated Delivery Date Method Current WG Current Estimate 08/13/25 LMP (Uncertain) 34w 0d Other Estimates 08/15/25 Ultrasound #1 33w 5d 08/15/25 Ultrasound #2 33w 5d 08/15/25 Manual 33w 5d final MEGHAN: 08/15/25, efw: 63% Notes Visit Date: 07/01/25 Last Updated by: Lani Cordero CNM sono: 06/26/25: EFW: 63%, mild hydroureter. Fetus needs referral to [facility] after delivery. notify peds. A+,abs-, rpr;;nr, rub imm, hbsag-, hiv-, HC-, GC/CT-, 8.04/29. A1c: 5.7, 1hr: 142, NIPT/neg, SMA- HGB: 8.7/28.7 Visit Date: 06/12/25 Last Updated by: Lani Rufino Consuelo, CNM 34 yo . No dates, 1st sono: 03/12/25: IUP 17w5. EDC: 08/14/25 Office Procedures OBC Clinic LOC & Office Proc's Nursing/Assessment Patient Status: Established Patient OB Clinic Nursing Assessment: Medication Reconciliation, Update PMH in EMR and Vital Signs OB Clinic Coordination of Care: AMA, Complex Care and Chronic Disease 1-5, Consent,records obtained, informed consent, Education Simp Pt/Fam, Lab and Imaging orders, Results/Orders obtained and Staff clarify orders Special Needs: Heart tones Established Patient Charge Established Patient Point Assignment: 155 Established Patient Point Charge: EP Level 4 (120-155) Assessment & Plan Diagnosis / Problem List (1) Encounter for supervision of high risk in third trimester, antepartum: Status: Acute Plan Disability starting July 02, 2025. Notes to be off work were given to patient. Discussed labor precautions. Comfort measures for backache and ligament pain. I discussed GDM diet with patient and I discussed increasing green veggies for low iron. Prescription for iron twice a day and vitamin C twice a day and no dairy with her iron. Patient to walk 40 minutes a day. Schedule 3-hour GTT. Return in 2 weeks OB check Additional Plan Follow Up: 2 Weeks (OBC)
[2025-07-01 16:10] VITALS: BP 126/84; PULSE 90; RESP 18; TEMP 36.6; O2SAT 98; BMI 46.9
== END 2025-07-01 16:34 | disposition home or self-care (01) ==
LOC: HODSOBC 15:27
PROVIDERS: Supervising Provider Advanced Practice Midwife; Visit Provider Advanced Practice Midwife
DX: O09.893 Supervision of other high risk pregnancies, third trimester (principal); O35.EXX0 Maternal care for other (suspected) fetal abnormality and damage, fetal genitourinary anomalies, not applicable or unspecified; O09.523 Supervision of elderly multigravida, third trimester; O09.43 Supervision of pregnancy with grand multiparity, third trimester; Z3A.33 33 weeks gestation of pregnancy
CPT/HCPCS: 99214; G0463

== ENCOUNTER 2025-07-07 05:04 | Observation (INO) | payer MEDICAID, SELFPAY ==
[2025-07-07] VITALS (14 sets, daily range): BP systolic 119–133; BP diastolic 58–72; PULSE 68–81; RESP 17–99; TEMP 36.3–37; O2SAT 98–100; BMI 48.6
--- NOTE | 2025-07-07 05:52 | XR_ITS ---
Examination: Abdomen sonogram, complete Date and time of exam: July 07, 2025, 0623 hrs. Indications: Onset abdominal pain today, history gallstones. Technique: Multiple real-time grayscale transabdominal sonographic images of the abdomen have been obtained. Findings: Multiple gallstones Gallbladder wall 0.3 cm no edema Common bile duct 0.3 cm Pancreatic head 3.6 cm Aorta obscured by bowel gas Hepatomegaly 21.2 cm fatty infiltration no focal liver lesions Normal hepatopedal portal venous flow Patent IVC Right kidney 12.1 cm cortex 1.3 cm Left kidney 13.9 cm cortex 1.5 cm No hydronephrosis or renal calculi Spleen 11.7 cm Impression: Cholelithiasis, negative for cholecystitis Normal common bile duct Moderate hepatomegaly fatty infiltration no focal liver lesions
--- NOTE | 2025-07-07 05:52 | XR_ITS ---
Examination: Complete OB ultrasound greater than 14 weeks Date and time of exam: July 07, 2025, 0615 hrs. Indications: Onset abdominal pain today Findings: Viable intrauterine single fetus with single amniotic sac presentation cephalic Cardiac motion 136 BPM Placenta anterior fundal grade 2 Amniotic fluid index 6.0 cm Cervix 3.8 cm Ovaries obscured by the fetus. Composite estimated gestational age based on BPD, head circumference, abdominal circumference, femur length is 35 weeks 1 day Estimated weight 2492 g. Survey of intracranial anatomy, spinal anatomy, abdominal anatomy, four-chamber heart performed with no abnormalities identified. Impression: Viable intrauterine gestation cephalic presentation Estimated gestational age 35 weeks 1 day Estimated weight 2492 g.
--- NOTE | 2025-07-07 06:06 | ESHP_ITS ---
Documentation for date of: 07/07/25 OB Labor/Induct. HPI History of Present Illness Chief complaint: Right upper quadrant pain, vomiting : 6 Para: 5 Term pregnancies: 5 pregnancies: 0 Living children: 5 History of Abortions: Spontaneous and Elective: 0 History of Vaginal deliveries: 5 History of sections: No History of : No MEGHAN: 08/15/25 Gestational Age (weeks): 34 Gestational Age (days): 3 History of present illness: The patient is a 35-year-old G6, P5 at 34-3/7 weeks with spotty care. She had a couple visits with Dr. Cuba at [facility]. She saw Lani at the [facility] OB clinic for 2 visits recently. Patient is dated by 17- week ultrasound. She presented to triage after eating [employer] approximately 4:30 in the morning on 07/07/2025 reporting severe right upper quadrant pain. Per ER records, patient has been diagnosed with gallstones as early as 2021. She did see Dr. Panda in the ER who recommended a gallbladder removal after her baby was born in 2021, but the patient apparently never followed up. She is now with signs and symptoms consistent with a gallstone attack. She is vomiting in triage and rolling around the bed in pain. She will be admitted for pain control, labs, ultrasound and observation. If needed, we will call a general surgery consult. She denies fevers chills she denies diarrhea she denies vaginal bleeding contractions or loss of fluids. She reports good movement. She did have an ultrasound with Dr. Frankel maternal- medicine recently revealing an enlarged bladder with some right sided hydroureter on the baby. The recommendation would be to repeat a renal ultrasound on the baby once its born. Dr. Frankel's ultrasound confirmed a due date of 08/25/2025. This is consistent with an ultrasound in March 2025. For her labs, patient's hemoglobin has been as low as 8.7 in the recent past. Will also give IV iron on admission. History of Present Dating criteria: LMP confirmed by 2nd trimester US Adequate Care: No Ultrasounds: normal mid trimester US Abnormal ultrasound findings: Possible enlarged bladder and right hydroureter on maternal- medicine ultrasound on the baby recently. Obstetrical complications: preeclampsia and gestational hypertension Medical complications: other (Maternal morbid obesity of 49, severe anemia this with a hemoglobin 8.7) Labs Maternal Blood Type: A Pos Labs: Positive: Rubella Titre (Rubella immune), Negative: RPR, Hepatitis B, HIV, Chlamydia and Gonorrhea and Unknown: Herpes Type 1, Herpes Type 2, Group Beta Strep and Covid-19 Review of Systems Review of Systems Narrative Review of Systems: Patient denies fevers chills. She reports vomiting. She denies diarrhea. She denies vaginal bleeding loss of fluids or contractions. She reports severe right upper quadrant pain. Past Medical History Surgical History SURGICAL: Negative Section Past Medical History Comments PMH COMMENT: Patient has a history of preeclampsia and hypertension in previous pregnancies. Her blood pressure is normal today. She denies diabetes. She did have an elevated 1 hour glucose and needs a 3-hour glucose. She is morbidly obese with a BMI of 49. Meds Home Medications and Allergies Allergies Allergy/AdvReac Type Severity Reaction Status Date / Time No Known Allergies Allergy Verified 07/07/25 05:15 OB Exam Physical Exam Vital signs: Temp Pulse Resp BP Pulse Ox 97.6 F 72 19 122/58 L 100 07/07/25 05:24 07/07/25 05:24 07/07/25 05:24 07/07/25 05:24 07/07/25 05:53 Routine Abdominal Exam Abdominal: Present soft Comments: Diffusely tender abdomen especially right upper quadrant. Fundus difficult to measure. Detailed Labor and Delivery Exam monitor accelerations: 15x15 monitor decelerations: None senior care variability: Moderate (11-25) Contraction frequency (min): None Routine Extremities Exam Comments: No significant edema or erythema of lower extremities OB Assessment & Plan Assessment and Plan (1) Obesity complicating , third trimester: Status: Acute (2) Encounter for supervision of high risk in third trimester, antepartum: Status: Acute (3) Cholelithiasis affecting in third trimester, antepartum: Status: Acute Assessment and plan: At this point we will keep the patient for observation. Labs are pending. Gallbladder ultrasound and ultrasound pending. Dilaudid and Zofran given. Patient now resting comfortably for her gallbladder and ultrasound. (1) Obesity complicating , third trimester Qualifiers: Obesity type affecting : severe obesity due to excess calories Qualified Code(s): O99.213 - Obesity complicating , third trimester; E6 6.01 - Morbid (severe) obesity due to excess calories
[2025-07-07] MEDS: HYDROmorphone INJ 2 MG/ML VIAL IVP ×2 (06:08→09:10)
[2025-07-07 06:16] LABS: Collection Type, Urine Clean Catch
[2025-07-07 06:18] LABS: Basophils # (Auto) 0.0 Thou/mm3 (0.0-0.2); Basophils % (Auto) 0 % (0-2.5); Eosinophils # (Auto) 0.1 Thou/mm3 (0.0-0.5); Eosinophils % (Auto) 1 % (0-10); Hematocrit 30.1 % (36.0-46.0); Hemoglobin 9.1 g/dL (12.0-16.0); Immature Granulocytes Auto 0.27 Thou/mm3 (0.00-0.00); Lymphocytes # (Auto) 2.5 Thou/mm3 (1.0-4.8); Lymphocytes % (Auto) 20 % (10-50); Mean Corpuscular HGB Conc 30.2 g/dl (31.0-37.0); Mean Corpuscular Hemoglobin 22.6 pg (25.0-35.0); Mean Corpuscular Volume 75 fL (80-100); Monocytes # (Auto) 0.7 Thou/mm3 (0.0-0.8); Monocytes % (Auto) 6 % (0-12); Neutrophils # (Auto) 8.7 Thou/mm3 (1.8-7.7); Neutrophils % (Auto) 71 % (37-80); Nucleated Red Blood Cell # 0.00 Thou/mm3 (0.00-0.00); Nucleated Red Blood Cell % 0 /100 WBC (0); Platelet Count 317 Thou/mm3 (140-440); RDW Standard Deviation 43.1 fL (36.4-46.3); Red Blood Count 4.02 Miln/mm3 (4.00-5.20); White Blood Count 12.3 Thou/mm3 (3.6-11.0)
[2025-07-07] MEDS: RINGERS LACTATED 1000 ML 1,000 ML 999 ML IV (06:18)
[2025-07-07 06:21] LABS: Bacteria,Urine Rare; Bilirubin,Urine Negative (Negative); Blood,Urine Negative (Negative); Clarity,Urine Clear (Clear/Hazy); Color,Urine Lt-Yellow (Lt Yel-Yel); Glucose, Urine Negative (Negative); Ketones,Urine Negative (Negative); Leukocyte Esterase,Urine Positive (Negative); Nitrite,Urine Negative (Negative); PH,Urine 6.0 (5.0-7.0); Protein,Urine Negative (Neg - Trace); RBC,Urine 2 /hpf (0-3); Specific Gravity,Urine 1.029 (1.001-1.035); Squamous Epithelial Cell,Urine 8 /hpf (0-5); Urobilinogen,Urine Negative mg/dL (0.0-1.0); WBC,Urine 5 /hpf (0-5)
[2025-07-07 06:43] LABS: Albumin, Serum 4.0 gm/dL (3.5-5.0); Albumin/Globulin Ratio 1.4 (1.2-2.2); Alkaline Phosphatase 114 U/L (46-116); Amylase 104 U/L (30-118); Anion Gap 10 (7-16); Aspartate Amino Transferase 13 U/L (0-34); BUN/Creatinine Ratio 16 Ratio (12-20); Bilirubin,Total 0.2 mg/dL (0.3-1.2); Blood Urea Nitrogen 11 mg/dL (9-23); Calcium 9.0 mg/dL (8.3-10.6); Calcium (Corrected) 9.0 mg/dL (8.5-10.1); Carbon Dioxide 22.7 mMol/L (20.0-31.0); Chloride 108 mMol/L (98-107); Creatinine (Component) 0.7 mg/dL (0.6-1.3); Estimated Creatinine Clearance 151.4 mL/min (>60); Globulin 2.8 gm/dL (2.3-3.5); Glucose 97 mg/dL (74-106); Lipase 52 U/L (12-53); Osmolality,Calculated 280 (275-295); Potassium 3.9 mMol/L (3.4-5.1); Sodium 141 mMol/L (136-145); Total Protein 6.8 gm/dL (5.7-8.2); eGFR > 60 See Note
[2025-07-07 06:48] LABS: Alanine Aminotransferase 8 U/L (10-49)
[2025-07-07] MEDS: MEPERIDINE INJ 50 MG/ML VIAL IVP (07:32)
[2025-07-07] MEDS: ONDANSETRON INJ 2 MG/ML INJ 2 ML 4 MG IVP (07:32)
[2025-07-07] MEDS: DEXTROSE 5%-0.45% NS 1,000 ML 100 ML IV ×2 (09:33→20:59)
[2025-07-07] MEDS: BETAMET ACET/BETAMET NA PH (Celestone) 6 MG/ML VIAL 12 MG IM (09:34)
[2025-07-07] MEDS: PIPER/TAZO 3.375 GM PREMIX 3.375 GM/50 ML BAG IV ×2 (10:02→17:44)
--- NOTE | 2025-07-07 11:25 | PD.SURCONS ---
HPI Consult details Consult date: 07/07/25 Reason for consultation narrative: The patient was seen in consultation because of right upper quadrant pain starting today. History of present illness: Patient is 34 weeks and she has been experiencing right upper quadrant pain during this . She was evaluated by general surgeon Dr. Panda who advised to surgery in the past but she did not follow-up with her. Now she has had severe pain in the right upper quadrant. She has also vomited twice. She has no fever or chills or jaundice. Her other medical problem consist of obesity and she is weighing 292 pounds with BMI of 48.6 Past Medical History Past Medical History NEUROLOGIC: Negative Neurological Disorders, Cerebrovascular Accident, Transient Ischemic Attacks (TIA), Dementia, Alzheimer's Disease, Parkinson's Disease, Brain Tumor, Meningitis, Seizures, Epilepsy, Multiple Sclerosis, Cerebral Palsy, Amyotrophic Lateral Sclerosis (ALS/Nikki Gehrig's), Guillain-Clarkston Syndrome, Spina Bifida, Paralysis, Peripheral Neuropathy, Cerrato's Palsy, Subdural Hematoma, Migraine, Head Trauma, Spinal Cord Injury or Traumatic Brain Injury CARDIAC: Positive Cardiac Disorders and Hypertension (in last ); Negative Congestive Heart Failure RESPIRATORY: Negative Chronic Obstructive Pulmonary Disease (COPD), Asthma or Bronchitis GASTROINTESTINAL: Positive Gastrointestinal Disorders (hx gallstones) and Obesity; Negative Hepatitis, Cirrhosis, Pancreatitis, Celiac Disease, Gall Bladder Disease, Gastrointestinal Bleed, Esophageal Varices, Castle's Esophagus, Colitis, Ulcerative Colitis, Diverticulitis, Diverticulosis, Ulcer, Colorectal Cancer, Irritable Bowel, Crohn's Disease, Obstructive Bowel, Hiatal Hernia, Hemorrhoids or Gastroesophageal Reflux Disease GENITOURINARY: Negative Genitourinary Disorders, Renal Disease, Kidney Stones, Polycystic Kidney Disease, Neurogenic Bladder, Inguinal Hernia, Dialysis, Prostate Cancer or Benign Prostatic Hyperplasia REPRODUCTIVE: Negative Breast Cancer, Endometriosis, Pelvic Inflammatory Disease, Previous Pregnancies, Testicular Cancer or Uterine Prolapse MUSCULOSKELETAL: Negative Musculoskeletal Disorders, Muscular Dystrophy or Bone Cancer ENT: Negative Cataracts, Glaucoma, Blind, Retinal Detachment, Macular Degeneration, Ear Infection, Deafness, Head Trauma or Eye Prosthesis ENDOCRINE: Positive Endocrine Disorders; Negative Diabetes Mellitus Type 1, Diabetes Mellitus Type 2, Hypoglycemia, Tutu's Syndrome, Romain's Disease, Hyperthyroidism, Hypothyroidism, Parathyroid Disease, Pituitary Disease, Systemic Lupus Erythematosus, Syndrome of Inappropriate Antidiuretic Hormone (SIADH), Adrenal Disease or Graves' Disease HEMATOLOGIC: Positive Anemia; Negative Blood Disorders, Leukemia, Hemophilia, Thalassemia, Sickle Cell Disease or Clotting Problems PSYCHO/SOCIAL: Negative Psychiatric Problems, Schizophrenia, Recreational Drug Use, Bipolar Disorder, Depression, Anxiety, Behavior Problems, Self-Mutilation, Attention Deficit Disorder, Attention Deficit Hyperactivity Disorder, Depression, Post Traumatic Stress Disorder or Eating Disorder OTHER HISTORY: Negative Hospitalization, Autoimmune Disease, Down Syndrome, Autism, Developmental Delay, Shingles, Falls, Blood Transfusions, Blood Transfusion Reaction, Anesthesia Reactions, Organ Transplant, Chemotherapy, Radiation Therapy, Hyperbaric Therapy, MRSA, VRSA, Vancomycin-Resistant Enterococci, Human Immunodeficiency Virus (HIV), Chicken Pox, Measles, Mumps, Rubella (Prydeinig Measles), Pertussis, Clostridium Difficile, Cancer, Breast Cancer, Cervical Cancer, Colorectal Cancer, Lung Cancer, Ovarian Cancer, Prostate Cancer or Testicular Cancer Family History FAMILY HISTORY: Positive Family Gastrointestinal Problems (father,mother, sister gallbladder issues); Negative Family Psychiatric Problems, Family Respiratory Disorders, Family Cardiac Disorders, Family Cancer, Family Surgery or Family Anesthesia Reaction Surgical History SURGICAL: Negative Cardiac Surgery, Open Heart Surgery, Coronary Artery Bypass Graft, Valve Replacement, Vascular Surgery, Coronary Stent, Cardiac Catheterization, Endocrine Surgery, Thyroidectomy, Ear Surgery, Tympanostomy Tube, Eye Surgery, Nose Surgery, Oral Surgery, Tonsillectomy, Adenoidectomy, Cochlear Implant, Corneal Transplant, Abdominal Surgery, Gastric Bypass Surgery, Gastrostomy, Bowel Surgery, Nephrectomy, Transurethral Resection, Section or Organ Transplant Social History SMOKING STATUS: Never smoker SECOND HAND EXPOSURE: No Past Medical History Comments PMH COMMENT: Patient has a history of preeclampsia and hypertension in previous pregnancies. Her blood pressure is normal today. She denies diabetes. She did have an elevated 1 hour glucose and needs a 3-hour glucose. She is morbidly obese with a BMI of 49. Meds Home Medications and Allergies Home Medications ?Medication ?Instructions ?Recorded ?Confirmed ?Type bismuth subsalicylate 262 mg/15 mL 524 mg PO QID 07/07/25 07/07/25 History oral suspension (Anti-Diarrheal) Allergies Allergy/AdvReac Type Severity Reaction Status Date / Time No Known Allergies Allergy Verified 07/07/25 05:15 Exam Vital Signs Temp Pulse Resp BP Pulse Ox O2 Del Method 97.4 F 72 20 122/58 L 100 Room Air 07/07/25 08:42 07/07/25 05:24 07/07/25 08:42 07/07/25 05:24 07/07/25 05:53 07/07/25 08:42 Narrative Exam Physical examination revealed morbidly obese female with normal vital signs Constitutional Constitutional: severe distress Routine Abdominal Exam Comments: Examination abdomen showed that the uterus is in the upper portion of the abdominal cavity. Patient had definite tenderness and positive Nevarez sign on palpation of the right upper quadrant. Routine Rectal Exam Comments: Deferred Routine Exam Comments: Deferred Results Results: Laboratory Laboratory Narrative: Patient's laboratory workup showed mild leukocytosis. Liver enzymes are normal Results: Imaging Imaging narrative: Ultrasound showed gallstones without evidence of acute cholecystitis like thickening of the gallbladder wall and Librado cholecystic fluid collection Assessment & Plan Additional Assessment Additional comments: Impression: Cholelithiasis with possible cholecystitis Intrauterine Morbid obesity Plan Plan: Patient is experiencing pain obviously due to gallstones. It is difficult to say whether she has an acute cholecystitis but mild leukocytosis is of concern. I will treat him with antibiotics and pain medications to see if it improves. If not patient will have to undergo induction and delivery of the baby before attempting cholecystectomy laparoscopically or open approach. This was explained to her. Thank you very much
[2025-07-07 16:55] LABS: Basophils # (Auto) 0.0 Thou/mm3 (0.0-0.2); Basophils % (Auto) 0 % (0-2.5); Eosinophils # (Auto) 0.0 Thou/mm3 (0.0-0.5); Eosinophils % (Auto) 0 % (0-10); Hematocrit 29.1 % (36.0-46.0); Hemoglobin 9.1 g/dL (12.0-16.0); Immature Granulocytes Auto 0.34 Thou/mm3 (0.00-0.00); Lymphocytes # (Auto) 1.4 Thou/mm3 (1.0-4.8); Lymphocytes % (Auto) 9 % (10-50); Mean Corpuscular HGB Conc 31.3 g/dl (31.0-37.0); Mean Corpuscular Hemoglobin 23.6 pg (25.0-35.0); Mean Corpuscular Volume 75 fL (80-100); Monocytes # (Auto) 0.2 Thou/mm3 (0.0-0.8); Monocytes % (Auto) 1 % (0-12); Neutrophils # (Auto) 12.8 Thou/mm3 (1.8-7.7); Neutrophils % (Auto) 87 % (37-80); Nucleated Red Blood Cell # 0.00 Thou/mm3 (0.00-0.00); Nucleated Red Blood Cell % 0 /100 WBC (0); Platelet Count 294 Thou/mm3 (140-440); RDW Standard Deviation 43.5 fL (36.4-46.3); Red Blood Count 3.86 Miln/mm3 (4.00-5.20); White Blood Count 14.7 Thou/mm3 (3.6-11.0)
[2025-07-07] MEDS: HYDROcodone/APAP 5/325 TABLET 1 TAB PO (17:06)
[2025-07-07 17:11] LABS: Alanine Aminotransferase 8 U/L (10-49); Albumin, Serum 3.9 gm/dL (3.5-5.0); Albumin/Globulin Ratio 1.3 (1.2-2.2); Alkaline Phosphatase 116 U/L (46-116); Anion Gap 9 (7-16); Aspartate Amino Transferase 15 U/L (0-34); BUN/Creatinine Ratio 12 Ratio (12-20); Bilirubin,Total 0.3 mg/dL (0.3-1.2); Blood Urea Nitrogen 7 mg/dL (9-23); Calcium 8.6 mg/dL (8.3-10.6); Calcium (Corrected) 8.7 mg/dL (8.5-10.1); Carbon Dioxide 23.4 mMol/L (20.0-31.0); Chloride 104 mMol/L (98-107); Creatinine (Component) 0.6 mg/dL (0.6-1.3); Estimated Creatinine Clearance 176.7 mL/min (>60); Globulin 2.9 gm/dL (2.3-3.5); Glucose 130 mg/dL (74-106); Osmolality,Calculated 271 (275-295); Potassium 4.3 mMol/L (3.4-5.1); Sodium 136 mMol/L (136-145); Total Protein 6.8 gm/dL (5.7-8.2); eGFR > 60 See Note
--- NOTE | 2025-07-07 17:43 | PD.SURPROG ---
Documentation for date of: 07/07/25 Subjective Subjective Brief History: Patient is 34 weeks and she has been experiencing right upper quadrant pain during this . She was evaluated by general surgeon Dr. Panda who advised to surgery in the past but she did not follow-up with her. Now she has had severe pain in the right upper quadrant. She has also vomited twice. She has no fever or chills or jaundice. Her other medical problem consist of obesity and she is weighing 292 pounds with BMI of 48.6 Exam Vital Signs Temp Pulse Resp BP Pulse Ox O2 Del Method 97.4 F 73 20 129/71 98 Room Air 07/07/25 08:42 07/07/25 16:59 07/07/25 08:42 07/07/25 16:59 07/07/25 17:20 07/07/25 08:42 Assessment & Plan Assessment Additional comments: Patient's abdominal pain is better this evening. Physical examination revealed less tenderness in the subcostal region Plan Plan: We shall keep the patient on liquid diet for a day to because regular diet may cause recurrence of the pain. I will sign out at this time because this could be managed nonoperatively
[2025-07-08] VITALS (8 sets, daily range): BP systolic 103–119; BP diastolic 54–67; PULSE 26–75; RESP 16–17; TEMP 36.8–36.9; O2SAT 88–96
[2025-07-08] MEDS: PIPER/TAZO 3.375 GM PREMIX 3.375 GM/50 ML BAG IV ×2 (01:34→10:33)
[2025-07-08 05:36] LABS: Basophils # (Auto) 0.0 Thou/mm3 (0.0-0.2); Basophils % (Auto) 0 % (0-2.5); Eosinophils # (Auto) 0.0 Thou/mm3 (0.0-0.5); Eosinophils % (Auto) 0 % (0-10); Hematocrit 27.6 % (36.0-46.0); Immature Granulocytes Auto 0.34 Thou/mm3 (0.00-0.00); Lymphocytes # (Auto) 1.7 Thou/mm3 (1.0-4.8); Lymphocytes % (Auto) 11 % (10-50); Mean Corpuscular HGB Conc 30.4 g/dl (31.0-37.0); Mean Corpuscular Hemoglobin 22.9 pg (25.0-35.0); Mean Corpuscular Volume 75 fL (80-100); Monocytes # (Auto) 0.7 Thou/mm3 (0.0-0.8); Monocytes % (Auto) 4 % (0-12); Neutrophils # (Auto) 13.3 Thou/mm3 (1.8-7.7); Neutrophils % (Auto) 83 % (37-80); Nucleated Red Blood Cell # 0.00 Thou/mm3 (0.00-0.00); Nucleated Red Blood Cell % 0 /100 WBC (0); Platelet Count 314 Thou/mm3 (140-440); RDW Standard Deviation 43.1 fL (36.4-46.3); Red Blood Count 3.67 Miln/mm3 (4.00-5.20); White Blood Count 16.0 Thou/mm3 (3.6-11.0)
[2025-07-08 06:09] LABS: Hemoglobin 8.4 g/dL (12.0-16.0)
--- NOTE | 2025-07-08 07:23 | ESPR_ITS ---
Documentation for date of: 07/08/25 OB Labor Progress Note Pain Control Pain control: tolerating well Comments: Patient rested comfortably overnight. She did have some [place] once last evening. She is tolerating a general diet and ambulating to the restroom and voiding. She is afebrile. Her right upper quadrant pain has improved. Appreciate Dr. Kim's recommendations from general surgery. The plan will be to send her home later today. She is due for second dose of Celestone at 9 AM. Pelvic Exam Amniotic membrane status: Intact Contractions Monitor mode: External Contraction frequency: 0 Contraction intensity: Mild Status status: Category l Assessment and Plan Comments: 35-year-old G6, P5 with gallstones. 34-5/7 weeks. Second dose of Celestone today. Will probably discharge after steroids home on [place], Augmentin, and Zofran. Low-fat diet.
[2025-07-08] MEDS: DEXTROSE 5%-0.45% NS 1,000 ML 100 ML IV (07:39)
--- NOTE | 2025-07-08 08:32 | ESDS_ITS ---
DS: Providers Provider Date of admission: 07/07/25 05:04 Primary care physician: Physician No Primary/Family Admitting Provider: Claudia Mckeon MD ([facility]) Attending Provider on Admission: Romulo Sainz MD Consults: 07/07/25 09:40 Consult to General Surgery Stat Comment: Consulting Provider: Rubén Gonzalez Attending Provider on DC: Claudia Mckeon MD ([facility]) Discharging Provider: Claudia Mckeon MD ([facility] Clinic) Anticipated date of discharge: 07/08/25 DS: Diagnosis Discharge Diagnosis (1) Cholelithiasis affecting in third trimester, antepartum: Status: Acute Assessment & Plan: Discharge home on oral pain medications. [place]. Also Augmentin for a week. Zofran as needed nausea. Encouraged low-fat diet. Discouraged fast food. (2) Obesity complicating , third trimester: Status: Acute (3) Advanced maternal age (AMA) in : Status: Acute Problem List Completed Was Problem List Reviewed/Reconciled?: Yes Summary/Hosp Course Brief History: The patient is a 35-year-old G6, P5 at 34-3/7 weeks with spotty care. She had a couple visits with Dr. [place] at [facility]. She saw Lani at the [facility] clinic for 2 visits recently. Patient is dated by 17- week ultrasound. She presented to triage after eating [id number] approximately 4:30 in the morning on 07/07/2025 reporting severe right upper quadrant pain. Per ER records, patient has been diagnosed with gallstones as early as 2021. She did see Dr. Panda in the ER who recommended a gallbladder removal after her baby was born in 2021, but the patient apparently never followed up. She is now with signs and symptoms consistent with a gallstone attack. She is vomiting in triage and rolling around the bed in pain. She will be admitted for pain control, labs, ultrasound and observation. If needed, we will call a general surgery consult. She denies fevers chills she denies diarrhea she denies vaginal bleeding contractions or loss of fluids. She reports good movement. She did have an ultrasound with Dr. Frankel maternal- medicine recently revealing an enlarged bladder with some right sided hydroureter on the baby. The recommendation would be to repeat a renal ultrasound on the baby once its born. Dr. Frankel's ultrasound confirmed a due date of 08/25/2025. This is consistent with an ultrasound in March 2025. For her labs, patient's hemoglobin has been as low as 8.7 in the recent past. Will also give IV iron on admission. Please see history and physical for further details Hospital course: Patient was admitted given IV pain meds as needed. She was started on Zosyn. A general surgery consult was called who rounded on the patient twice. The plan was observation, clear liquid diet, advance to general as tolerated. Patient was given Celestone x 2. She was discharged home day after being observed a little more than 24 hours in stable condition. Status at Discharge Functional status at discharge: independent ambulation Overall status at discharge: patient is progressing back to baseline Time Spent with Patient Time attestation: Total time spent providing and/or coordinating discharge services: Time spent: Less than 30 minutes Specific discharge activities: Low-fat diet. Follow-up in clinic in 1 week. Come back for fevers, severe right upper quadrant pain not controlled with pain medication, or severe nausea or vomiting. Exam Vital Signs Temp Pulse Resp BP Pulse Ox O2 Del Method 98.3 F 73 17 116/66 96 Room Air 07/08/25 06:39 07/08/25 06:57 07/08/25 06:39 07/08/25 06:57 07/08/25 05:22 07/08/25 06:39 Narrative Exam Patient is alert and orient x 3 in no apparent distress resting comfortably in bed. Abdomen is soft nontender. Discharge Plan Plan Patient Disposition: HOME (Self Care) Disposition Comment: Stable Prescriptions/Referrals Prescriptions/Med Rec: New acetaminophen 325 mg Tablet 500 mg PO Q6HR PRN (Reason: Fever >101.5) Qty: 30 0RF hydrocodone-acetaminophen 5-325 mg Tablet 1 tab PO Q4HR MDD 3 PRN (Reason: Pain Scale 4-6 (Moderate) Qty: 20 0RF ondansetron 4 mg tablet,disintegrating 4 mg PO Q6H PRN (Reason: nausea and vomiting) Qty: 20 0RF amoxicillin-pot clavulanate [Augmentin] 500-125 mg tablet 1 tab PO TID Qty: 21 0RF Discontinued bismuth subsalicylate [Anti-Diarrheal] 262 mg/15 mL suspension 524 mg PO QID Patient Comments: PATIENT STATES SHE DOES NOT KNOW HOW MUCH OF A DOSE SHE TOOK, STATES I JUST TOOK A DRINK OF IT Referrals: No Primary/Family,Physician [Primary Care Provider] Patient/Caregiver Discharge Instructions Discharge Activity: activity as tolerated Other Discharge Activity Instructions:: Low-fat diet until delivery. Follow-up in the office in 1 week call with fever, pain not controlled with oral pain medications for severe vomiting Other Discharge Diet Instructions: Low-fat diet Education Materials: Facts About Dietary Fat, What Are Gallstones, Treating Gallstones, Weight Manage Exercise Activity Print Language: Sami Activity Restrictions/Additional Instructions: Call with fevers severe right upper quadrant pain or severe nausea vomiting Stand Alone Forms: Hedy Award Info., Patient Portal Info Letter, Work/Release Restrictions Discharge Order Discharge Orders: Discharge (Routine); Ordered 07/08/25 Ordered By: Claudia Mckeon (OB Clinic) Planned Discharge Date 07/08/25 (2) Obesity complicating , third trimester Qualifiers: Obesity type affecting : severe obesity due to excess calories Qualified Code(s): O99.213 - Obesity complicating , third trimester; E66.01 - Morbid (severe) obesity due to excess calories
[2025-07-08] MEDS: FERRIC SOD GLUC INJ 125 MG in SODIUM CHLORIDE 0.9% 100 ML 110 MG IV (09:15)
[2025-07-08] MEDS: BETAMET ACET/BETAMET NA PH (Celestone) 6 MG/ML VIAL 12 MG IM (10:17)
== END 2025-07-08 12:00 | disposition home or self-care (01) ==
PROVIDERS: Admitting Provider Obstetrics & Gynecology; Visit Provider Obstetrics & Gynecology
DX: O99.613 Diseases of the digestive system complicating pregnancy, third trimester (principal); K80.20 Calculus of gallbladder without cholecystitis without obstruction; O99.213 Obesity complicating pregnancy, third trimester; E66.01 Morbid (severe) obesity due to excess calories; Z3A.34 34 weeks gestation of pregnancy; O09.523 Supervision of elderly multigravida, third trimester
CPT/HCPCS: 36415; 59025; 59899; 76700; 76805; 80053; 81001; 82150; 83690; 85025; 87086; 96361; 96365; 96366; 96372; 96375; 96376; J0702; J1171; J2175; J2405; J2543; J2916; J7042; J7050; J7120; A9270

== ENCOUNTER 2025-07-16 15:32 | Outpatient (AMB) | payer MEDICAID, SELFPAY ==
[2025-07-16 15:56] VITALS: BP 126/84; PULSE 85; RESP 16; TEMP 36.5; O2SAT 98; BMI 44.3
--- NOTE | 2025-07-16 15:56 | OBCLNT_ITS ---
Vital Signs 07/16/25 15:56 Height 1.7 m Height Method Stated Weight 128.367 kg Weight Measurement Method Standing Scale BMI 44.3 BP 126/84 Blood Pressure Source Automatic Cuff Blood Pressure Location Left Upper Arm Position Sitting Respiration 16 Pulse 85 Pulse Source Monitor Temp 97.7 F Temp Source Oral Pulse Oximetry (%) 98 Oxygen Delivery Method Room Air Allergies/Home Meds Allergies & Medications Allergies No Known Allergies Allergy (Verified 07/16/25 15:56) Medication Reconciliation hydrocodone 5 mg-acetaminophen 325 mg tablet 1 tab PO Q4HR PRN Pain Scale 4-6 (Moderate #20 tabs 07/08/25 [Rx Confirmed 07/16/25] ondansetron 4 mg disintegrating tablet 4 mg PO Q6H PRN nausea and vomiting #20 tabs 07/08/25 [Rx Confirmed 07/16/25] Intake Visit Data Collection New Patient or Established: Established Patient (seen at [facility] within 3 years) Reason for Visit:: CARE Seen by Clinical Staff ONLY (RN/MA): No Blocker And Polisher Gold Wheel Required: No Do You Feel Safe at Home: Yes Authorities Contacted: N/A PCP or OBGYN visit in last 3 months: Yes Hx Now: Yes Are you currently on any form of Control: No Pain Present Currently: Yes Pain Location: Abdomen Pain Scale Used: Leon-Fierro/Numerical Pain scale:: 7 Smoking Status Smoking Status: Never smoker Questionnaires Covid-19 Vaccine Questionnaire Has patient been vacinated for Covid-19 Have you been vacinated for Covid-19: No PHQ-9 PHQ-2 Over the last 2 weeks, how often have you been bothered by any of the following problems? 1. Little interest or pleasure in doing things: not at all 2. Feeling down, depressed, or hopeless: not at all Total score: 0 PHQ-9 3. Trouble falling or staying asleep, or sleeping too much: Not at all 4. Feeling tired or having little energy: Not at all 5. Poor appetite or overeating: Not at all 6. Feeling bad about yourself - or that you are a failure or have let yourself or your family down: Not at all 7. Trouble concentrating on things, such as reading the newspaper or watching television: Not at all 8. Moving or speaking so slowly that other people could have noticed? - Or the opposite - being so fidgety or restless that you have been moving around a lot more than usual: not at all 9. Thoughts that you would be better off or of hurting yourself in some way: Not at all Total score: 0 Source: Developed by Drs. Marcos Mcdermott, Jacinta Miller, Darrick Caldwell and colleagues, with an educational giuseppe from [employer]. Depression screen completed yes Social History Living Situation History Lives With: Family Housing: House Tobacco History Smoking Status: Never smoker Second Hand Smoke Exposure: No Alcohol History Alcohol Intake: Never Domestic Abuse History Do You Feel Safe at Home: Yes CLAIMS MANAGER: Past Medical History Past Medical History: No Hx Neurological Disorders, No Hx Hypothyroidism, No Hx Hyperthyroidism, No Hx Breast Cancer, Yes Hx Cardiac Disorders, Yes Hx Hypertension (in last ), No Hx Cancer, No Hx Blood Disorders, Yes Hx Anemia, Yes Hx Gastrointestinal Disorders (hx gallstones), No Hx Renal Disease, No Hx Diabetes Mellitus Type 1, No Hx Diabetes Mellitus Type 2 and No Psychiatric Problems Care OB Visit Log OB Flowsheet Initial Weight: Not Recorded Date -?-?-?-?-?-?-?-?-?-?-?-?- EGA Weight BP Alb Glu CTX Pres Fundal ht FHR Mov Dilation Station Effacement Hx Notes Visit Note 06/12/25 -?-?-?-?-?-?-?-?--?-?-?-?- 30w 6d 131.258 kg 134/85 absent unknown 31 134 active 34-year-old 6 para 5 for OBI. Poor dates. First ultrasound March 12, 2025. Patient was 17 weeks 5 and this gave a due date August 14, 2025. Patient's not had any care. She works in the [employer]. Complains of rash on her right upper forearm it looks like tinea. Thi rd trimester labs today with 1 hour GTT and NIPT and carrier screens. Scheduled urgent ultrasound appointment with [facility] for growth. I refilled prenatals. And then gave patient a prescription of tr iamcinolone and nystatin to be applied to the affected area twice daily. I discussed about care good hygiene handwashing and keep the area clean and dry. Discussed labor precautions and kick count. Patient declined Tdap. Return in 2 weeks OB check 07/01/25 -?-?-?-?-?-?-?-?-?-?-?-?- 33w 4d 132.506 kg 126/84 absent unknown 33 134 active Reports movement. Denies labor complaints. Denies leaking, bleeding, contractions. Continue prenatals. Discussed diet, weight gain. Complains of increased back pain and ligament pain. 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 I gave vitamin C 500 p.o. twice daily as well. Discussed high iron foods. I discussed GDM diet with patient. Order 3-hour GTT. Patient will start disability July 02, 2025. 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 Note given to patient for disability. 07/16/25 -?-?-?-?-?-?-?-?-?-?-?-?- 35w 5d 128.367 kg 126/84 absent cephalic 35 13 6 active Complains of epigastric pain right side. Patient has gallstones. She reports that pain is like 4 out of 10. So she has been trying comfort measures to help with the discomfort. She reports good movement. Denies leaking, bleeding, contractions. Patient did 3-hour GTT but results are not done GBS today, comfort measures for gallstones. Consult with OB. Induced at 39 weeks. Discussed labor precautions and kick count. Return in a week OB check IOL 39 week, 08/07/25. GBS to day, comfort measures for gallstones. Consult with OB. Induced at 39 weeks. Discussed labor precautions and kick count. Return in a week OB check MEGHAN Calculator Estimated Delivery Date Method Current WG Current Estimate 08/15/25 Ultrasound #1 35w 5d Other Estimates 08/13/25 LMP (Uncertain) 36w 0d 08/15/25 Ultrasound #2 35w 5d 08/15/25 Manual 35w 5d final MEGHAN: 08/03 12/25, efw: 63% Notes Visit Date: 07/01/25 Last Updated by: Lani Cordero CNM sono: 06/26/25: EFW: 63%, mild hydroureter. Fetus needs referral to [facility] after delivery. notify peds. A+,abs-, rpr;;nr, rub imm, hbsag-, hiv-, HC-, GC/CT-, 8.04/29. A1c: 5.7, 1hr: 142, NIPT/neg, SMA- HGB: 8.28.7 Visit Date: 06/12/25 Last Updated by: Lani Cordero, SRAVAN 34 yo . No dates, sono: 03/12/25: IUP 17w5. EDC: 08/14/25 Office Procedures [facility] LOC & Office Proc's Nursing/Assessment Patient Status: Established Patient OB Clinic Nursing Assessment: Medication Reconciliation, Update PMH in EMR and Vital Signs OB Clinic Coordination of Care: Complex Care and Chronic Disease 1-5, Consent,records obtained, informed consent, Education Simp Pt/Fam, 1 Ins Authorization, Lab and Imaging orders, Results/Orders obtained and Staff clarify orders Special Needs: Heart tones Established Patient Charge Established Patient Point Assignment: 150 Established Patient Point Charge: EP Level 4 (120-155) Assessment & Plan Diagnosis / Problem List (1) Cholelithiasis affecting in third trimester, antepartum: Status: Acute (2) Encounter for supervision of high risk in third trimester, antepartum: Status: Acute (3) Advanced maternal age (AMA) in : Status: Acute Plan Comfort measures for gallstones. Discussed low caffeine diet and decrease her fat. Be active and walk. Discussed labor precautions. Kick count twice a day. GBS today. Consult with OB. Schedule induction at 39 weeks. Induction will be August 07, 2025. Return in a week OB check Additional Plan Follow Up: 1 Week (obc)
== END 2025-07-16 16:28 | disposition home or self-care (01) ==
LOC: HODSOBC 15:32
PROVIDERS: Supervising Provider Advanced Practice Midwife; Visit Provider Advanced Practice Midwife
DX: O09.523 Supervision of elderly multigravida, third trimester (principal); O09.43 Supervision of pregnancy with grand multiparity, third trimester; O09.893 Supervision of other high risk pregnancies, third trimester; O99.613 Diseases of the digestive system complicating pregnancy, third trimester; K80.20 Calculus of gallbladder without cholecystitis without obstruction; Z3A.35 35 weeks gestation of pregnancy; Z36.85 Encounter for antenatal screening for Streptococcus B
CPT/HCPCS: 99214; G0463

== ENCOUNTER 2025-07-24 14:06 | Outpatient (AMB) | payer MEDICAID, SELFPAY ==
[2025-07-24 14:09] VITALS: BP 111/79; PULSE 98; RESP 18; TEMP 36.7; O2SAT 98; BMI 45.6
--- NOTE | 2025-07-24 14:09 | OBCLNT_ITS ---
Vital Signs 07/24/25 14:09 Height 1.7 m Height Method Stated Weight 131.712 kg Weight Measurement Method Standing Scale BMI 45.6 BP 111/79 Blood Pressure Source Automatic Cuff Blood Pressure Location Left Upper Arm Position Sitting Respiration 18 Pulse 98 Pulse Source Monitor Temp 98.1 F Temp Source Oral Pulse Oximetry (%) 98 Oxygen Delivery Method Room Air Allergies/Home Meds Allergies & Medications Allergies No Known Allergies Allergy (Verified 07/24/25 14:13) Medication Reconciliation hydrocodone 5 mg-acetaminophen 325 mg tablet 1 tab PO Q4HR PRN Pain Scale 4-6 (Moderate #20 tabs 07/08/25 [Rx Confirmed 07/24/25] ondansetron 4 mg disintegrating tablet 4 mg PO Q6H PRN nausea and vomiting #20 tabs 07/08/25 [Rx Confirmed 07/24/25] Intake Visit Data Collection New Patient or Established: Established Patient (seen at [facility] within 3 years) Reason for Visit:: CARE Seen by Clinical Staff ONLY (RN/MA): No 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: No Do You Feel Safe at Home: Yes Authorities Contacted: N/A PCP or OBGYN visit in last 3 months: Yes Hx Now: Yes Are you currently on any form of Control: No Pain Present Currently: No Pain Scale Used: Leon-Fierro/Numerical Pain scale:: 0 Smoking Status Smoking Status: Never smoker Immunizations Flu Vaccine in the Last 12 Months: No Flu Vaccine Exclusion Criteria: No Exclusion Criteria Questionnaires Covid-19 Vaccine Questionnaire Has patient been vacinated for Covid-19 Have you been vacinated for Covid-19: Yes PHQ-9 PHQ-2 Over the last 2 weeks, how often have you been bothered by any of the following problems? 1. Little interest or pleasure in doing things: not at all 2. Feeling down, depressed, or hopeless: not at all Total score: 0 PHQ-9 3. Trouble falling or staying asleep, or sleeping too much: Not at all 4. Feeling tired or having little energy: Not at all 5. Poor appetite or overeating: Not at all 6. Feeling bad about yourself - or that you are a failure or have let yourself or your family down: Not at all 7. Trouble concentrating on things, such as reading the newspaper or watching television: Not at all 8. Moving or speaking so slowly that other people could have noticed? - Or the opposite - being so fidgety or restless that you have been moving around a lot more than usual: not at all 9. Thoughts that you would be better off or of hurting yourself in some way: Not at all Total score: 0 Source: Developed by Drs. Marcos Mcdermott, Jacinta Miller, Darrick Caldwell and colleagues, with an educational giuseppe from [employer]. 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 Medical History Past Medical History: No Hx Neurological Disorders, No Hx Hypothyroidism, No Hx Hyperthyroidism, No Hx Breast Cancer, Yes Hx Cardiac Disorders, Yes Hx Hypertension (in last ), No Hx Cancer, No Hx Blood Disorders, Yes Hx Anemia, Yes Hx Gastrointestinal Disorders (hx gallstones), No Hx Renal Disease, No Hx Diabetes Mellitus Type 1, No Hx Diabetes Mellitus Type 2 and No Psychiatric Problems Care OB Visit Log OB Flowsheet Initial Weight: Not Recorded Date -?-?-?-?-?--?-?-?-?-?-?-?- EGA Weight BP Alb Glu CTX Pres Fundal ht FHR Mov Dilation Station Effacement Hx Notes Visit Note 06/12/25 -?-?-?-?-?-?-?-?-?-?-?-?- 30w 6d 131.258 kg 134/85 absent unknown 31 134 active 34-year-old 6 para 5 for OBI. Poor dates. First ultrasound March 12, 2025. Patient was 17 weeks 5 and this gave a due date August 14, 2025. Patient's not had any care. She works in the [employer]. Complains of rash on her right upper forearm it looks like tinea. Thi rd trimester labs today with 1 hour GTT and NIPT and carrier screens. Scheduled urgent ultrasound appointment with [facility] for growth. I refilled prenatals. And then gave patient a prescription of triamcinolone and nystatin to be applied to the affected area twice daily. I discussed about care good hygiene handwashing and keep the area clean and dry. Discussed labor precautions and kick count. Patient declined Tdap. Return in 2 weeks OB check 07/01/25 -?-?-?-?-?-?-?-?-?-?-?-?- 33w 4d 132.506 kg 126/84 absent unknown 33 134 active Reports movement. Denies labor complaints. Denies leaking, bleeding, contractions. Continue prenatals. Discussed diet, weight gain. Complains of increased back pain and ligament pain. 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 I gave vitamin C 500 p.o. twice daily as well. Discussed high iron foods. I discussed GDM diet with patient. Order 3-hour GTT. Patient will start disability July 02, 2025. 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 Note given to patient for disability. 07/16/25 -?-?-?-?-?-?-?-?-?-?-?-?- 35w 5d 128.367 kg 126/84 absent cephalic 35 13 6 active Complains of epigastric pain right side. Patient has gallstones. She reports that pain is like 4 out of 10. So she has been trying comfort measures to help with the discomfort. She reports good movement. Denies leaking, bleeding, contractions. Patient did 3-hour GTT but results are not done GBS today, comfort measures for gallstones. Consult with OB. Induced at 39 weeks. Discussed labor precautions and kick count. Return in a week OB check IOL 39 week, 08/07/25. GBS to day, comfort measures for gallstones. Consult with OB. Induced at 39 weeks. Discussed labor precautions and kick count. Return in a week OB check 07/24/25 -?-?-?-?-?-?-?-?-?-?-?-?- 36w 6d 131.712 kg 111/79 absent cephalic 36 14 5 active And gallbladder pain has decreased somewhat. Reports good movement. Denies leaking or bleeding. No complaints of labor. Patient is scheduled for induction August 07. Repeat GBS because the first 1 was not read and. Does not discuss kick count twice a day. Labor precautions. Return in a week OB check MEGHAN Calculator Estimated Delivery Date Method Current WG Current Estimate 08/15/25 Ultrasound #1 36w 6d Other Estimates 08/13/25 LMP (Uncertain) 37w 1d 08/15/25 Ultrasound #2 36w 6d 08/15/25 Manual 36w 6d final MEGHAN: 08/03 12/25, efw: 63% Notes Visit Date: 07/01/25 Last Updated by: Lani Cordero CNM sono: 06/26/25: EFW: 63%, mild hydroureter. Fetus needs referral to [facility] after delivery. notify peds. A+,abs-, rpr;;nr, rub imm, hbsag-, hiv-, HC-, GC/CT-, 8.04/29. A1c: 5.7, 1hr: 142, NIPT/neg, SMA- HGB: 8./28.7 Visit Date: 06/12/25 Last Updated by: Lani Cordero CNM 34 yo . No dates, sono: 03/12/25: IUP 17w5. EDC: 08/14/25 Office Procedures OBC Clinic LOC & Office Proc's Nursing/Assessment Patient Status: Established Patient OB Clinic Nursing Assessment: Medication Reconciliation, Update PMH in EMR and Vital Signs OB Clinic Coordination of Care: Complex Care and Chronic Disease 1-5, Education Complex Pt/Fam, Consent,records obtained, informed consent, Lab and Imaging orders, Results/Orders obtained and Staff clarify orders Special Needs: Heart tones Established Patient Charge Established Patient Point Assignment: 140 Established Patient Point Charge: EP Level 4 (120-155) Assessment & Plan Diagnosis / Problem List (1) Cholelithiasis affecting in third trimester, antepartum: Status: Acute (2) Encounter for supervision of high risk in third trimester, antepartum: Status: Acute (3) Obesity complicating , third trimester: Status: Acute Qualifiers: Obesity type affecting : severe obesity due to excess calories Qualified Code(s): O99.213 - Obesity complicating , third trimester; E66.01 - Morbid (severe) obesity due to excess calories Plan Discussed labor precautions. Kick count twice a day. Patient is scheduled for induction August 07. GBS today. Return in a week OB check. Discussed danger signs symptoms and ER precautions Additional Plan Follow Up: 1 Week (obc)
== END 2025-07-24 14:52 | disposition home or self-care (01) ==
LOC: HODSOBC 14:06
PROVIDERS: Supervising Provider Advanced Practice Midwife; Visit Provider Advanced Practice Midwife
DX: O09.893 Supervision of other high risk pregnancies, third trimester (principal); O99.213 Obesity complicating pregnancy, third trimester; O99.613 Diseases of the digestive system complicating pregnancy, third trimester; K80.20 Calculus of gallbladder without cholecystitis without obstruction; O09.523 Supervision of elderly multigravida, third trimester; O09.43 Supervision of pregnancy with grand multiparity, third trimester; Z3A.36 36 weeks gestation of pregnancy; Z36.85 Encounter for antenatal screening for Streptococcus B
CPT/HCPCS: 99214; G0463

== ENCOUNTER 2025-07-29 12:13 | Observation (INO) | payer MEDICAID, SELFPAY ==
[2025-07-29 12:37] VITALS: BP 131/79; PULSE 77
[2025-07-29 12:39] VITALS: BMI 47.6
[2025-07-29 12:48] VITALS: BP 131/79; PULSE 77; RESP 18; RESP 99; TEMP 36.6
== END 2025-07-29 13:30 | disposition home or self-care (01) ==
PROVIDERS: Admitting Provider Advanced Practice Midwife; Visit Provider Advanced Practice Midwife
DX: O26.893 Other specified pregnancy related conditions, third trimester (principal); Z3A.37 37 weeks gestation of pregnancy; R25.2 Cramp and spasm
CPT/HCPCS: 59025; 59899

== ENCOUNTER 2025-07-31 09:32 | Outpatient (AMB) | payer MEDICAID, SELFPAY ==
--- NOTE | 2025-07-31 09:35 | OBCLNT_ITS ---
Vital Signs 07/31/25 09:49 Height 1.68 m Height Method Stated Weight 134.774 kg Weight Measurement Method Standing Scale BMI 47.7 BP 121/82 Blood Pressure Source Automatic Cuff Blood Pressure Location Left Upper Arm Position Sitting Respiration 14 Pulse 78 Pulse Source Monitor Temp 97.8 F Temp Source Oral Pulse Oximetry (%) 98 Oxygen Delivery Method Room Air Allergies/Home Meds Allergies & Medications Allergies No Known Allergies Allergy (Verified 07/31/25 09:50) Medication Reconciliation ondansetron 4 mg disintegrating tablet 4 mg PO Q6H PRN nausea and vomiting #20 tabs 07/08/25 [Rx Confirmed 07/31/25] Intake Visit Data Collection New Patient or Established: Established Patient (seen at [facility] within 3 years) Reason for Visit:: CARE Seen by Clinical Staff ONLY (RN/MA): No Project Control Officer Required: No Do You Feel Safe at Home: Yes Authorities Contacted: N/A PCP or OBGYN visit in last 3 months: Yes Hx Now: Yes Are you currently on any form of Control: No Pain Present Currently: No Pain Scale Used: Leon-Fierro/Numerical Pain scale:: 0 Smoking Status Smoking Status: Never smoker Immunizations Flu Vaccine in the Last 12 Months: Yes Flu Vaccine Exclusion Criteria: Already Received Questionnaires Covid-19 Vaccine Questionnaire Has patient been vacinated for Covid-19 Have you been vacinated for Covid-19: Yes PHQ-9 PHQ-2 Over the last 2 weeks, how often have you been bothered by any of the following problems? 1. Little interest or pleasure in doing things: not at all 2. Feeling down, depressed, or hopeless: not at all Total score: 0 PHQ-9 3. Trouble falling or staying asleep, or sleeping too much: Not at all 4. Feeling tired or having little energy: Not at all 5. Poor appetite or overeating: Not at all 6. Feeling bad about yourself - or that you are a failure or have let yourself or your family down: Not at all 7. Trouble concentrating on things, such as reading the newspaper or watching television: Not at all 8. Moving or speaking so slowly that other people could have noticed? - Or the opposite - being so fidgety or restless that you have been moving around a lot more than usual: not at all 9. Thoughts that you would be better off or of hurting yourself in some way: Not at all Total score: 0 Source: Developed by Drs. Marcos Mcdermott, Jacinta Miller, Darrick Caldwell and colleagues, with an educational giuseppe from [email or web address]. Depression screen completed yes Social History Living Situation History Lives With: Family Housing: House Tobacco History Smoking Status: Never smoker Second Hand Smoke Exposure: No Alcohol History Alcohol Intake: Never Domestic Abuse History Do You Feel Safe at Home: Yes EXTERN: Past Medical History Past Medical History: No Hx Neurological Disorders, No Hx Hypothyroidism, No Hx Hyperthyroidism, No Hx Breast Cancer, Yes Hx Cardiac Disorders, Yes Hx Hypertension (in last ), No Hx Cancer, No Hx Blood Disorders, Yes Hx Anemia, Yes Hx Gastrointestinal Disorders (hx gallstones), No Hx Renal Disease, No Hx Diabetes Mellitus Type 1, No Hx Diabetes Mellitus Type 2 and No Psychiatric Problems Care OB Visit Log OB Flowsheet Initial Weight: Not Recorded Date -?-?-?-?-?-?-?-?-?-?-?-?- EGA Weight BP Alb Glu CTX Pres Fundal ht FHR Mov Dilation Station Effacement Hx Notes Visit Note 06/12/25 -?-?-?-?-?-?-?-?-?--?-?-?- 30w 6d 131.258 kg 134/85 absent unknown 31 134 active 34-year-old 6 para 5 for OBI. Poor dates. First ultrasound March 12, 2025. Patient was 17 weeks 5 and this gave a due date August 14, 2025. Patient's not had any care. She works in the [employer]. Complains of rash on her right upper forearm it looks like tinea. Thi rd trimester labs today with 1 hour GTT and NIPT and carrier screens. Scheduled urgent ultrasound appointment with [facility] for growth. I refilled prenatals. And then gave patient a prescription of tri amcinolone and nystatin to be applied to the affected area twice daily. I discussed about care good hygiene handwashing and keep the area clean and dry. Discussed labor precautions and kick count. Patient declined Tdap. Return in 2 weeks OB check 07/01/25 -?-?-?-?-?-?-?-?-?-?-?-?- 33w 4d 132.506 kg 126/84 absent unknown 33 134 active Reports movement. Denies labor complaints. Denies leaking, bleeding, contractions. Continue prenatals. Discussed diet, weight gain. Complains of increased back pain and ligament pain. 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 I gave vitamin C 500 p.o. twice daily as well. Discussed high iron foods. I discussed GDM diet with patient. Order 3-hour GTT. Patient will start disability July 02, 2025. 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 Note given to patient for disability. 07/16/25 -?-?-?-?-?-?-?-?-?-?-?-?- 35w 5d 128.367 kg 126/84 absent cephalic 35 13 6 active Complains of epigastric pain right side. Patient has gallstones. She reports that pain is like 4 out of 10. So she has been trying comfort measures to help with the discomfort. She reports good movement. Denies leaking, bleeding, contractions. Patient did 3-hour GTT but results are not done GBS today, comfort measures for gallstones. Consult with OB. Induced at 39 weeks. Discussed labor precautions and kick count. Return in a week OB check IOL 39 week, 08/07/25. GBS to day, comfort measures for gallstones. Consult with OB. Induced at 39 weeks. Discussed labor precautions and kick count. Return in a week OB check 07/24/25 -?-?-?-?-?-?-?-?-?-?-?-?- 36w 6d 131.712 kg 111/79 absent cephalic 36 14 5 active And gallbladder pain has decreased somewhat. Reports good movement. Denies leaking or bleeding. No complaints of labor. Patient is scheduled for induction August 07. Repeat GBS because the first 1 was not read and. Does not discuss kick count twice a day. Labor precautions. Return in a week OB check 07/31/25 -?-?-?-?-?-?-?-?-?-?-?-?- 37w 6d 134.774 kg 121/82 occasional cephalic 37 145 active Gallbladder pain is improved. Reports good movement. Denies leaking or bleeding. Occasional contraction pressure. Discussed labor precautions. Kick count twice a week. Continue weekly NST BPP. Induction is scheduled for August 07. MEGHAN Calculator Estimated Delivery Date Method Current WG Current Estimate 08/15/25 Ultrasound #1 37w 6d Other Estimates 08/13/25 LMP (Uncertain) 38w 1d 08/15/25 Ultrasound #2 37w 6d 08/15/25 Manual 37w 6d final MEGHAN: 08/03 12/25, efw: 63% Notes Visit Date: 07/31/25 Last Updated by: Lani Cordero CNM GBS- Visit Date: 07/01/25 Last Updated by: Lani Cordero CNM sono: 06/26/25: EFW: 63%, mild hydroureter. Fetus needs referral to [facility] after delivery. notify peds. A+,abs-, rpr;;nr, rub imm, hbsag-, hiv-, HC-, GC/CT-, 8.7/28. A1c: 5.7, 1hr: 142, NIPT/neg, SMA- HGB: 8.7/28.7 Visit Date: 06/12/25 Last Updated by: Lani Cordero CNM 34 yo . No dates, sono: 03/12/25: IUP 17w5. EDC: 08/14/25 Office Procedures OBC Clinic LOC & Office Proc's Nursing/Assessment Patient Status: Established Patient OB Clinic Nursing Assessment: Medication Reconciliation, Update PMH in EMR and Vital Signs OB Clinic Coordination of Care: AMA, Complex Care and Chronic Disease 1-5, Consent,records obtained, informed consent, Education Simp Pt/Fam, 1 Ins Authorization, Lab and Imaging orders, Results/Orders obtained and Staff clarify orders Special Needs: Heart tones Established Patient Charge Established Patient Point Assignment: 170 Established Patient Point Charge: EP Level 5 (160-above) Assessment & Plan Diagnosis / Problem List (1) Encounter for supervision of high risk in third trimester, antepartum: Status: Acute (2) Obesity complicating , third trimester: Status: Acute Qualifiers: Obesity type affecting : severe obesity due to excess calories Qualified Code(s): O99.213 - Obesity complicating , third trimester; E66.01 - Morbid (severe) obesity due to excess calories Plan Discussed labor precautions. Kick count twice a day. Induction for August 07. Increase fluids continue prenatals. Weekly NST BPP because of maternal week OB check
[2025-07-31 09:49] VITALS: BP 121/82; PULSE 78; RESP 14; TEMP 36.6; O2SAT 98; BMI 47.7
== END 2025-07-31 10:05 | disposition home or self-care (01) ==
LOC: HODSOBC 09:32
PROVIDERS: Supervising Provider Advanced Practice Midwife; Visit Provider Advanced Practice Midwife
DX: O09.893 Supervision of other high risk pregnancies, third trimester (principal); O99.213 Obesity complicating pregnancy, third trimester; O09.523 Supervision of elderly multigravida, third trimester; O09.43 Supervision of pregnancy with grand multiparity, third trimester; Z3A.37 37 weeks gestation of pregnancy
CPT/HCPCS: 99215; G0463

== ENCOUNTER 2025-08-05 09:59 | Outpatient (AMB) | payer MEDICAID, SELFPAY ==
[2025-08-05 10:22] VITALS: BP 119/79; PULSE 76; RESP 18; TEMP 36.3; O2SAT 95; BMI 47.5
--- NOTE | 2025-08-05 10:22 | OBCLNT_ITS ---
Vital Signs 08/05/25 10:22 Height 1.68 m Height Method Stated Weight 134.037 kg Weight Measurement Method Standing Scale BMI 47.5 BP 119/79 Blood Pressure Source Automatic Cuff Blood Pressure Location Right Upper Arm Position Sitting Respiration 18 Pulse 76 Pulse Source Monitor Temp 97.3 F Temp Source Temporal Artery Scan Pulse Oximetry (%) 95 Oxygen Delivery Method Room Air Allergies/Home Meds Allergies & Medications Allergies No Known Allergies Allergy (Verified 08/05/25 10:23) Medication Reconciliation ondansetron 4 mg disintegrating tablet 4 mg PO Q6H PRN nausea and vomiting #20 tabs 07/08/25 [Rx Confirmed 08/05/25] Intake Visit Data Collection New Patient or Established: Established [place] [facility] [place] Reason for Visit:: OBC Seen by Clinical Staff ONLY (RN/MA): No Director Retirement Required: No Do You Feel Safe at Home: Yes Authorities Contacted: N/A PCP or OBGYN visit in last 3 months: Yes Hx Now: Yes Are you currently on any form of Control: No Pain Present Currently: No Pain Scale Used: Leon-Feirro/Numerical Pain scale:: 0 Smoking Status Smoking Status: Never smoker Immunizations Flu Vaccine in the Last 12 Months: No Flu Vaccine Exclusion Criteria: No Exclusion Criteria Questionnaires Covid-19 Vaccine Questionnaire Has patient been vacinated for Covid-19 Have you been vacinated for Covid-19: No PHQ-9 PHQ-2 Over the last 2 weeks, how often have you been bothered by any of the following problems? 1. Little interest or pleasure in doing things: not at all 2. Feeling down, depressed, or hopeless: not at all Total score: 0 PHQ-9 3. Trouble falling or staying asleep, or sleeping too much: Not at all 4. Feeling tired or having little energy: Not at all 5. Poor appetite or overeating: Not at all 6. Feeling bad about yourself - or that you are a failure or have let yourself or your family down: Not at all 7. Trouble concentrating on things, such as reading the newspaper or watching television: Not at all 8. Moving or speaking so slowly that other people could have noticed? - Or the opposite - being so fidgety or restless that you have been moving around a lot more than usual: not at all 9. Thoughts that you would be better off or of hurting yourself in some way: Not at all Total score: 0 If you checked off any problems, how difficult have these problems made it for you to do your work, take care of things at home, or get along with other people?: not difficult at all Source: Developed by Drs. Marcos Mcdermott, Jacinta Miller, Darrick Caldwell and colleagues, with an educational giuseppe from [employer]. Depression screen completed yes Social History Living Situation History Marital Status: Life Partner Lives With: Family Housing: House Tobacco History Smoking Status: Never smoker Second Hand Smoke Exposure: No Alcohol History Alcohol Intake: Never Domestic Abuse History Do You Feel Safe at Home: Yes [employer]TON [employer]ER: Past Medical History Past Medical History: No Hx Neurological Disorders, No Hx Hypothyroidism, No Hx Hyperthyroidism, No Hx Breast Cancer, Yes Hx Cardiac Disorders, Yes Hx Hypertension (in last ), No Hx Cancer, No Hx Blood Disorders, Yes Hx Anemia, Yes Hx Gastrointestinal Disorders (hx gallstones), No Hx Renal Disease, No Hx Diabetes Mellitus Type 1, No Hx Diabetes Mellitus Type 2 and No Psychiatric Problems Care OB Visit Log OB Flowsheet Initial Weight: Not Recorded Date -?-?-?-?-?-?-?-?-?-?-?-?- EGA Weight BP Alb Glu CTX Pres Fundal ht FHR Mov Dilation Station Effacement Hx Notes Visit Note 06/12/25 -?-?-?-?-?-?-?-?-?-?-?-?- 30w 6d 131.258 kg 134/85 absent unknown 31 134 active 34-year-old 6 para 5 for OBI. Poor dates. First ultrasound March 12, 2025. Patient was 17 weeks 5 and this gave a due date August 14, 2025. Patient's not had any care. She works in the [employer]. Complains of rash on her right upper forearm it looks like tinea. Thi rd trimester labs today with 1 hour GTT and NIPT and carrier screens. Scheduled urgent ultrasound appointment with [facility] for growt h. I refilled prenatals. And then gave patient a prescription of triamcinolone and nystatin to be applied to the affected area twice daily. I discussed about care good hygiene handwashing and keep the area clean and dry. Discussed labor precautions and kick count. Patient declined Tdap. Return in 2 weeks OB check 07/01/25 -?-?-?-?-?-?-?-?-?-?-?-?- 33w 4d 132.506 kg 126/84 absent unknown 33 134 active Reports movement. Denies labor complaints. Denies leaking, bleeding, contractions. Continue prenatals. Discussed diet, weight gain. Complains of increased back pain and ligament pain. 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 I gave vitamin C 500 p.o. twice daily as well. Discussed high iron foods. I discussed GDM diet with patient. Order 3-hour GTT. Patient will start disability July 02, 2025. 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 Note given to patient for disability. 07/16/25 -?-?-?-?-?-?-?-?-?-?-?-?- 35w 5d 128.367 kg 126/84 absent cephalic 35 13 6 active Complains of epigastric pain right side. Patient has gallstones. She reports that pain is like 4 out of 10. So she has been trying comfort measures to help with the discomfort. She reports good movement. Denies leaking, bleeding, contractions. Patient did 3-hour GTT but results are not done GBS today, comfort measures for gallstones. Consult with OB. Induced at 39 weeks. Discussed labor precautions and kick count. Return in a week OB check IOL 39 week, 08/07/25. GBS to day, comfort measures for gallstones. Consult with OB. Induced at 39 weeks. Discussed labor precautions and kick count. Return in a week OB check 07/24/25 -?-?-?-?-?-?-?-?-?-?-?-?- 36w 6d 131.712 kg 111/79 absent cephalic 36 14 5 active And gallbladder pain has decreased somewhat. Reports good movement. Denies leaking or bleeding. No complaints of labor. Patient is scheduled for induction August 07. Repeat GBS because the first 1 was not read and. Does not discuss kick count twice a day. Labor precautions. Return in a week OB check 07/31/25 -?-?-?-?-?-?-?-?-?-?-?-?- 37w 6d 134.774 kg 121/82 occasional cephalic 37 145 active Gallbladder pain is improved. Reports good movement. Denies leaking or bleeding. Occasional contraction pressure. Discussed labor precautions. Kick count twice a week. Continue weekly NST BPP. Induction is scheduled for August 07. 08/05/25 -?-?-?-?-?-?-?-?-?-?-?-?- 38w 4d 134.037 kg 119/79 occasional cephalic 38 145 active Gallbladder pain is improved. Reports good movement. Denies leaking, bleeding, contractions. And patient is scheduled for induction on 07 August. Discussed kick count. Discussed labor precautions. Discussed ER precautions. Induction of labor August 07, 2025 MEGHAN Calculator Estimated Delivery Date Method Current WG Current Estimate 08/15/25 Ultrasound #1 38w 4d Other Estimates 08/13/25 LMP (Uncertain) 38w 6d 08/15/25 Ultrasound #2 38w 4d 08/15/25 Manual 38w 4d final MEGHAN: 08/03 12/25, efw: 63% Notes Visit Date: 07/31/25 Last Updated by: Lani Cordero CNM GBS- Visit Date: 07/01/25 Last Updated by: Lani Cordero CNM sono: 06/26/25: EFW: 63%, mild hydroureter. Fetus needs referral to [facility] after delivery. notify peds. A+,abs-, rpr;;nr, rub imm, hbsag-, hiv-, HC-, GC/CT-, 8.7/28. A1c: 5.7, 1hr: 142, NIPT/neg, SMA- HGB: 8.7/28.7 Visit Date: 06/12/25 Last Updated by: Lani Cordero CNM 34 yo . No dates, 1st sono: 03/12/25: IUP 17w5. EDC: 08/14/25 Office Procedures OBC Clinic LOC & Office Proc's Nursing/Assessment Patient Status: Established Patient OB Clinic Nursing Assessment: Medication Reconciliation, Update PMH in EMR and Vital Signs OB Clinic Coordination of Care: Complex Care and Chronic Disease 1-5, Education Complex Pt/Fam, Consent,records obtained, informed consent, Results/Orders obtained and Staff clarify orders Special Needs: Heart tones Established Patient Charge Established Patient Point Assignment: 125 Established Patient Point Charge: EP Level 4 (120-155) Assessment & Plan Diagnosis / Problem List (1) Cholelithiasis affecting in third trimester, antepartum: Status: Acute (2) Obesity complicating , third trimester: Status: Acute Qualifiers: Obesity type affecting : severe obesity due to excess calories Qualified Code(s): O99.213 - Obesity complicating , third trimester; E66.01 - Morbid (severe) obesity due to excess calories (3) Advanced maternal age (AMA) in : Status: Acute Plan Induction scheduled for August 07, 2025. Discussed labor precautions. Kick count twice a day. Discussed ER precautions and danger signs and symptoms. Return in a week and if patient is not in for delivery. Additional Plan Follow Up: 1 Week (obc)
== END 2025-08-05 10:32 | disposition home or self-care (01) ==
LOC: HODSOBC 09:59
PROVIDERS: Supervising Provider Advanced Practice Midwife; Visit Provider Advanced Practice Midwife
DX: O09.893 Supervision of other high risk pregnancies, third trimester (principal); O99.613 Diseases of the digestive system complicating pregnancy, third trimester; K80.20 Calculus of gallbladder without cholecystitis without obstruction; O99.213 Obesity complicating pregnancy, third trimester; O09.523 Supervision of elderly multigravida, third trimester; O09.43 Supervision of pregnancy with grand multiparity, third trimester; Z3A.38 38 weeks gestation of pregnancy
CPT/HCPCS: 99214; G0463

== ENCOUNTER 2025-08-06 08:56 | Inpatient (IN) | payer MEDICAID, SELFPAY ==
[2025-08-06] VITALS (108 sets, daily range): BP systolic 98–142; BP diastolic 55–84; PULSE 63–97; RESP 16–18; TEMP 36.4–36.8; O2SAT 93–100; BMI 46.3
[2025-08-06] MEDS: RINGERS LACTATED 1000 ML 1,000 ML 100 ML IV ×2 (10:07→16:01)
--- NOTE | 2025-08-06 10:30 | XR_ITS ---
Examination: Complete OB ultrasound greater than 14 weeks Date and time of exam: 08/06/2025, 11:18 a.m. INDICATION: Induction today, EFW requested COMPARISON: OB ultrasound 07/07/2025 Findings: Viable intrauterine single fetus with single amniotic sac in cephalic position. Cardiac motion identified, with bpm of 133. Four-chamber heart is seen. Posterior fundal placenta noted. Composite estimated gestational age based on BPD, head circumference, abdominal circumference, femur length is 38 weeks, 3 days. EFW = 3539 g +/-524 g. SATHYA = 13.6 cm. Survey of intracranial anatomy, spinal anatomy, abdominal anatomy, four-chamber heart performed with no apparent abnormalities identified. Three-vessel cord noted. The cervix is obscured by the head shadowing. Bowel gas obscures the bilateral ovaries. IMPRESSION: Single live IUP in cephalic position. EFW = 3539 g +/-524 g. SATHYA = 13.6 cm.
[2025-08-06 10:44] LABS: Basophils # (Auto) 0.0 Thou/mm3 (0.0-0.2); Basophils % (Auto) 0 % (0-2.5); Eosinophils # (Auto) 0.1 Thou/mm3 (0.0-0.5); Eosinophils % (Auto) 1 % (0-10); Hematocrit 30.6 % (36.0-46.0); Hemoglobin 9.4 g/dL (12.0-16.0); Immature Granulocytes Auto 0.18 Thou/mm3 (0.00-0.00); Lymphocytes # (Auto) 2.2 Thou/mm3 (1.0-4.8); Lymphocytes % (Auto) 21 % (10-50); Mean Corpuscular HGB Conc 30.7 g/dl (31.0-37.0); Mean Corpuscular Hemoglobin 23.2 pg (25.0-35.0); Mean Corpuscular Volume 76 fL (80-100); Monocytes # (Auto) 0.6 Thou/mm3 (0.0-0.8); Monocytes % (Auto) 6 % (0-12); Neutrophils # (Auto) 7.3 Thou/mm3 (1.8-7.7); Neutrophils % (Auto) 70 % (37-80); Nucleated Red Blood Cell # 0.00 Thou/mm3 (0.00-0.00); Nucleated Red Blood Cell % 0 /100 WBC (0); Platelet Count 313 Thou/mm3 (140-440); RDW Standard Deviation 52.1 fL (36.4-46.3); Red Blood Count 4.05 Miln/mm3 (4.00-5.20); White Blood Count 10.5 Thou/mm3 (3.6-11.0)
[2025-08-06 11:16] LABS: Syphilis Nonreactive (Nonreactive)
[2025-08-06] MEDS: PROMETHAZINE INJ 25 MG/ML VIAL 12.5 MG IM (18:27)
[2025-08-06] MEDS: MEPERIDINE INJ 50 MG/ML VIAL 75 MG IM (18:27)
[2025-08-06 22:48] LABS: Amphetamine/Metham Scrn,Ur OB Negative (Negative); Benzoylecgonine Screen, Ur OB Negative (Negative); Opiate Screen,Urine OB Negative (Negative); THC Screen,Urine OB Negative (Negative)
[2025-08-07] VITALS (88 sets, daily range): BP systolic 103–136; BP diastolic 53–79; PULSE 65–99; RESP 16–18; TEMP 36.7–37; O2SAT 73–100
[2025-08-07] MEDS: OXYTOCIN in NS 30 units 30 UNIT/500 ML BAG IV (01:22)
--- NOTE | 2025-08-07 01:41 | PD.LDHP ---
Documentation for date of: 08/07/25 OB Labor/Induct. HPI History of Present Illness Chief complaint: induction : 6 Para: 5 Term pregnancies: 5 pregnancies: 0 Living children: 5 History of Abortions: Spontaneous and Elective: 0 History of Vaginal deliveries: 5 History of sections: No History of : No Date of last menstrual period: 11/08/24 MEGHAN: 08/15/25 Gestational Age (weeks): 38 Gestational Age (days): 6 Gestational age based on last menstrual period: 38 History of present illness: 35-year-old 6 para 5 admitted for induction of labor. History of gallstones and repeated gallbladder attacks. Patient is AMA and morbid obesity. Last. November 08, 2024. Estimated due date August 15, 2025. Patient was late to care at 31 weeks. Denies social habits. Denies surgery. Denies chronic illness. Patient is a positive, antibody screen negative, RPR nonreactive, rubella immune, hepatitis B negative, hep C negative, HIV negative, GC and Chlamydia were negative. GBS negative. 1 hour GTT was elevated but 3-hour normal. And her NIPT and carrier screens were negative. Patient had an ultrasound with MFM minutes in the chart History of Present Dating criteria: LMP confirmed by 2nd trimester US Adequate Care: Yes Ultrasounds: normal mid trimester US Obstetrical complications: none Medical complications: none Labs Labs: Positive: Rubella Titre, Negative: RPR, Hepatitis B, HIV, Chlamydia, Gonorrhea and Group Beta Strep and Unknown: Herpes Type 1, Herpes Type 2 and Covid-19 Review of Systems Review of Systems Systems Reviewed: All systems reviewed, normal except as documented Past Medical History Surgical History SURGICAL: Negative Section Meds Home Medications and Allergies Allergies Allergy/AdvReac Type Severity Reaction Status Date / Time No Known Allergies Allergy Verified 08/06/25 10:32 OB Exam Physical Exam Vital signs: Temp Pulse Resp BP Pulse Ox O2 Del Method 98.0 F 65 16 119/68 100 Room Air 08/06/25 23:00 08/07/25 01:36 08/06/25 23:00 08/07/25 01:36 08/07/25 01:35 08/06/25 16:30 Narrative: Vital signs are stable afebrile. Alert and oriented. Normal heart rate and rhythm. Lungs are clear. Gravid abdomen. Gynecoid pelvis. Estimated weight 8 pounds. Vaginal exam admission was long, thick, posterior and presentation high. Vertex by ultrasound and EFW was 3500 g. 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
[2025-08-07] MEDS: OXYTOCIN in NS 20 units 20 UNIT/1,000 ML BAG 125 UNIT IV (03:58)
[2025-08-07] MEDS: OXYTOCIN INJ 10 UNIT/ML VIAL IM (03:59)
[2025-08-07] MEDS: TRANEXAMIC ACID 1,000 MG IVPB 1,000 MG/100 ML BAG 200 MG IV (04:04)
[2025-08-07] MEDS: METHYLERGONOVINE INJ 0.2 MG/ML VIAL IM (04:09)
--- NOTE | 2025-08-07 05:05 | OBDSUM_ITS ---
Data ([place]) Data Hx Section: No : 6 Term: 5 : 0 Livin Abortions: Spontaneous & Theraputic: 0 Delivery Data ([place]) Labor Data Initiation of labor: Induction Induction/Augmentation Agent: Cervidil, Pitocin and Artificial ROM ROM date: 08/07/25 ROM time: 03:41 Amniotic membrane rupture type: Artificial Amniotic fluid description: Clear Delivery Data EDC: 08/15/25 EDC calculated by:: LMP/early US confirmation Date of arrival to unit: 08/06/25 Time of arrival to unit: 08:56 Onset of labor date: 08/06/25 Onset of labor time: 17:00 Complete dilation date: 08/07/25 Complete dilation time: 03:43 [place] delivery date: 08/07/25 [place] delivery time: 03:57 Gestational age (weeks): 38 Gestational age (days): 6 Placenta delivery date: 08/07/25 Placenta delivery time: 04:03 Stage 1 total time: Labor - Stage 1 Duration 10 hours and 43 minutes Delivered by: Paolo Cordero Delivery nurse: Sera Dyer nurse: Sven Arora Ged Tutor at delivery: No Support person(s) at delivery: FOB Delivery Method Delivery method: Normal Vaginal Delivery Presentation: Vertex position: OA Anesthesia Type Anesthesia Type: Epidural Delivery Room Medications Delivery room medications given: demerol and phenergan IM x1 Delivery room medications: Methergine 0.2 mg IM, Pitocin 10 u IM, Pitocin 20 u IV, Cytotec 800 GA and other (txa x1) Placenta Placenta delivery description: Spontaneous (Inspected. Complete) Cord blood sent to lab: Yes cord blood collection: Cord Blood Type Episiotomy Episiotomy description: None EBL Estimated blood loss (ml): 400 Umbilical Cord cord description: 3 Vessels [place] Data ([place]) [place] Data order: 1 's gender: Male Identification band number: [id number] weight (gms): 3810 g Weight (pounds): 8 lbs and 6.4 ozs length: 52.07 cm 1 minute: 9 5 minutes: 9
[2025-08-07] MEDS: IBUPROFEN TAB 400 MG TABLET 800 MG PO ×2 (06:41→20:24)
[2025-08-07] MEDS: DOCUSATE SOD 100 MG CAPSULE PO ×2 (08:21→20:24)
--- NOTE | 2025-08-07 11:07 | CHAP ---
Gave a blessing on and family.
[2025-08-07 14:18] LABS: Basophils # (Auto) 0.0 Thou/mm3 (0.0-0.2); Basophils % (Auto) 0 % (0-2.5); Eosinophils # (Auto) 0.1 Thou/mm3 (0.0-0.5); Eosinophils % (Auto) 0 % (0-10); Hematocrit 29.0 % (36.0-46.0); Hemoglobin 9.0 g/dL (12.0-16.0); Immature Granulocytes Auto 0.12 Thou/mm3 (0.00-0.00); Lymphocytes # (Auto) 2.3 Thou/mm3 (1.0-4.8); Lymphocytes % (Auto) 16 % (10-50); Mean Corpuscular HGB Conc 31.0 g/dl (31.0-37.0); Mean Corpuscular Hemoglobin 23.2 pg (25.0-35.0); Mean Corpuscular Volume 75 fL (80-100); Monocytes # (Auto) 0.8 Thou/mm3 (0.0-0.8); Monocytes % (Auto) 5 % (0-12); Neutrophils # (Auto) 11.1 Thou/mm3 (1.8-7.7); Neutrophils % (Auto) 77 % (37-80); Nucleated Red Blood Cell # 0.00 Thou/mm3 (0.00-0.00); Nucleated Red Blood Cell % 0 /100 WBC (0); Platelet Count 288 Thou/mm3 (140-440); RDW Standard Deviation 51.8 fL (36.4-46.3); Red Blood Count 3.88 Miln/mm3 (4.00-5.20); White Blood Count 14.4 Thou/mm3 (3.6-11.0)
[2025-08-08 03:54] VITALS: BP 122/72; PULSE 84; RESP 18; TEMP 36.8; O2SAT 99
[2025-08-08] MEDS: IBUPROFEN TAB 400 MG TABLET 800 MG PO (05:06)
[2025-08-08 08:00] VITALS: BP 109/68; PULSE 62; RESP 17; TEMP 36.6; O2SAT 99
--- NOTE | 2025-08-08 08:25 | PD.LDPPPRG ---
Subjective Subjective Interval history: No complaints of pain. No dizziness. Bonding breast Exam Vital Signs Temp Pulse Resp BP Pulse Ox O2 Del Method 98.2 F 84 18 122/72 99 Room Air 08/08/25 03:54 08/08/25 03:54 08/08/25 03:54 08/08/25 03:54 08/08/25 03:54 08/08/25 03:54 Narrative Exam Vital signs stable afebrile. Lungs are clear no wheezes. Gravid abdomen. Normal heart rate and rhythm. Breasts are soft symmetrical. Abdomen soft nontender uterus well involuted below the umbilicus. Perineum is intact no swelling no signs of infection. Small lochia. Negative Homans' sign. 2+ DTRs Objective Labs 08/07/25 13:20 Labs: Laboratory Results - last 24 hr 08/07/25 13:20 WBC 14.4 H RBC 3.88 L Hgb 9.0 L Hct 29.0 L MCV 75 L MCH 23.2 L MCHC 31.0 RDW Std Deviation 51.8 H Plt Count 288 Neut % (Auto) 77 Lymph % (Auto) 16 [place] % (Auto) 5 Eos % (Auto) 0 Baso % (Auto) 0 Neut # (Auto) 11.1 H Lymph # (Auto) 2.3 [place] # (Auto) 0.8 Eos # (Auto) 0.1 Baso # (Auto) 0.0 Immature Gran # (Auto) 0.12 H Absolute Nucleated RBC 0.00 Immature Gran % 1 H Nucleated RBC % 0 Assessment & Plan Problem List (1) Normal labor and delivery: Status: Acute Assessment Comment Assessment comment: 24 hr pp Plan Comment Plan Comment: Discharge home with baby. Continue vitamins and iron. Tylenol ibuprofen for pain. Discussed danger signs symptoms and ER precautions. Discussed signs and symptoms of infection. Continue to drink lots of fluids and rest. Return in 2 to 3 weeks for visit and schedule tubal Time Spent With Patient Time: Total time spent is greater than 50% in coordination of care (as documented) at patient's floor/unit and/or counseling patient:
[2025-08-08] MEDS: DOCUSATE SOD 100 MG CAPSULE PO (08:27)
--- NOTE | 2025-08-08 08:28 | ESDS_ITS ---
DS: Providers Provider Date of admission: 08/06/25 08:56 Primary care physician: Physician No Primary/Family Admitting Provider: Romulo Sainz MD Attending Provider on Admission: Lani Cordero CNM Consults: 08/07/25 06:46 Referral Routine Comment: Attending Provider on DC: Lani Cordero CNM Discharging Provider: Lani Cordero CNM DS: Diagnosis Problem List Completed Was Problem List Reviewed/Reconciled?: Yes Summary/Hosp Course Brief History: 35-year-old 6 para 5 admitted for induction of labor. History of gallstones and repeated gallbladder attacks. Patient is AMA and morbid obesity. Last. November 08, 2024. Estimated due date August 15, 2025. Patient was late to care at 31 weeks. Denies social habits. Denies surgery. Denies chronic illness. Patient is a positive, antibody screen negative, RPR nonreactive, rubella immune, hepatitis B negative, hep C negative, HIV negative, GC and Chlamydia were negative. GBS negative. 1 hour GTT was elevated but 3- hour normal. And her NIPT and carrier screens were negative. Patient had an ultrasound with MFM minutes in the chart Peripartum Data Delivery Method: Normal Vaginal Delivery Episiotomy Description: None Laceration Description: no complications: none Time Spent with Patient Time attestation: Total time spent providing and/or coordinating discharge services: Exam Vital Signs Temp Pulse Resp BP Pulse Ox O2 Del Method 98.2 F 84 18 122/72 99 Room Air 08/08/25 03:54 08/08/25 03:54 08/08/25 03:54 08/08/25 03:54 08/08/25 03:54 08/08/25 03:54 Discharge Plan Plan Patient Disposition: HOME (Self Care) Patient condition on transfer: Stable Prescriptions/Referrals Prescriptions/Med Rec: No Action ondansetron 4 mg tablet,disintegrating 4 mg PO Q6H PRN (Reason: nausea and vomiting) Qty: 20 0RF Referrals: No Primary/Family,Physician [Primary Care Provider] Patient/Caregiver Discharge Instructions Discharge Activity: resume usual activities Print Language: [place]i Activity Restrictions/Additional Instructions: Discharge home with baby. Continue vitamins and iron. Tylenol or ibuprofen for pain. Increase rest and fluids. Discussed danger signs and symptoms, ER precautions with parameters. Signs symptoms of infection. And return in 2 to 3 weeks for visit and schedule tubal Stand Alone Forms: Hedy Award Info., Patient Portal Info Letter Discharge Order Discharge Orders: Discharge (Routine); Ordered 08/08/25 Ordered By: Lani Cordero Planned Discharge Date 08/08/25
[2025-08-08 11:20] VITALS: BP 110/69; PULSE 68; RESP 18; TEMP 36.6; O2SAT 99
== END 2025-08-08 11:26 | disposition home or self-care (01) | DRG 560 ==
LOC: S4SX 08-07 06:52 → S4NX 08-07 07:48
PROVIDERS: Admitting Provider Obstetrics & Gynecology; Visit Provider Advanced Practice Midwife
DX: O99.214 Obesity complicating childbirth (principal); E66.01 Morbid (severe) obesity due to excess calories; Z37.0 Single live birth; Z3A.38 38 weeks gestation of pregnancy
CPT/HCPCS: 36415; 76805; 80307; 85025; 86780; 86850; 86900; 86901; J2175; J2210; J2550; J2590; J2795; J3010; J3490; J7120; S0191; A9270

== ENCOUNTER 2025-08-20 09:22 | Emergency (ER) | payer MEDICAID, SELFPAY ==
--- NOTE | 2025-08-20 09:26 | PD.EDABDPN ---
ED Abdominal Pain RME/HPI General Chief Complaint: Abdominal Pain Stated complaint: PAIN (07/12) FROM GALLSTONES Time seen by provider: 08/20/25 09:31 Arrival date/time: 08/20/25 09:22 RME / HPI RME / HPI narrative: See [facility] for Dr. Joy's HPI documentation. Related Data Previous Rx's ?Medication ?Instructions ?Recorded ondansetron 4 mg disintegrating 4 mg PO Q6H PRN nausea and 07/08/25 tablet vomiting #20 tabs ondansetron 4 mg disintegrating 4 mg PO TID PRN nausea and 08/20/25 tablet vomiting 30 days #10 tabs oxycodone-acetaminophen 5 mg-325 2 tab PO Q8H PRN pain #20 tabs 08/20/25 mg tablet (Percocet) Allergies Allergy/AdvReac Type Severity Reaction Status Date / Time No Known Allergies Allergy Verified 08/20/25 09:24 Review of Systems Review of Systems Systems Reviewed: All systems reviewed, normal except as documented Past Medical History Past Medical History CARDIAC: Positive Cardiac Disorders and Hypertension (last ) GASTROINTESTINAL: Positive Gastrointestinal Disorders, Gall Bladder Disease (Gallstones) and Obesity REPRODUCTIVE: Positive Previous Pregnancies (X6) HEMATOLOGIC: Positive Anemia Family History FAMILY HISTORY: Positive Family Gastrointestinal Problems and Family Surgery (cholecystectomy) Social History SMOKING STATUS: Never smoker SECOND HAND EXPOSURE: No ED Exam Narrative Physical exam: See [facility] for Dr. Joy's physical exam documentation. Course Quality Measures none Orders Category Date Time Status Saline [Insert IV] NOW Care 08/20/25 09:[address] abdomen pelvis wo con Stat Exams 08/20/25 09:32 Completed US gall bladder Stat Exams 08/20/25 09:32 Completed Amylase Stat Lab 08/20/25 09:37 Completed Bilirubin,Direct Stat Lab 08/20/25 09:37 Completed Blood Culture (Lab) Stat Lab 08/20/25 09:36 Results CBC Stat Lab 08/20/25 09:37 Completed CMP [Comprehensive Metabolic Panel] Stat Lab 08/20/25 09:37 Completed CRP [C-Reactive Protein] Stat Lab 08/20/25 09:37 Completed ESR [Sed Rate (ESR)] Stat Lab 08/20/25 09:37 Completed HCG,Qualitative Serum Stat Lab 08/20/25 09:37 Completed Lactate (Lactic Acid) Stat Lab 08/20/25 09:37 Completed Lipase Stat Lab 08/20/25 09:37 Completed Magnesium Stat Lab 08/20/25 09:37 Completed Procalcitonin Stat Lab 08/20/25 09:37 Completed TSH [Thyroid Stimulating Hormone] Stat Lab 08/20/25 09:37 Completed UA, C/S IF [Urinalysis, C/S if Indicated] Stat Lab 08/20/25 10:48 Completed Urine Culture Stat Lab 08/20/25 10:48 Completed HYDROmorphone INJ [Dilaudid Inj] Med 08/20/25 09:28 Discontinued 1 mg IVP X1 ONE Ketorolac Inj [Toradol Inj] Med 08/20/25 09:28 Discontinued 30 mg IVP X1 ONE Ondansetron Inj [Zofran Inj] Med 08/20/25 09:28 Discontinued 4 mg IVP X1 ONE Sodium Chloride 0.9% 1000 ml [Ns] 1,000 ml Med 08/20/25 09:28 Discontinued IV 999 mls/hr Vital Signs Vital signs: Vital Signs Temperature 97.6 F 08/20/25 09:31 Pulse Rate 83 08/20/25 09:31 Respiratory Rate 18 08/20/25 09:31 Blood Pressure 153/92 H 08/20/25 09:31 Pulse Oximetry (%) 96 08/20/25 09:31 Oxygen Delivery Method Room Air 08/20/25 09:31 Pulse ox is 96% on room air which is adequate. Abdominal Pain MDM MDM Narrative MDM Narrative:: This section includes all my notes and documentations, including HPI, PE, and ED course. Bert Joy MD HPI: 35-year-old female here with severe upper abdominal pain with nausea for several hours. Has known gallstones. No fever. No other complaints. ROS: All negative except as documented in HPI. Physical Exam: General: Alert and oriented. In obvious pain. Eyes: Conjunctivae and lids clear. ENT: No nasal congestion. Neck: Supple. Heart: RRR. Lungs: No respiratory distress. Good air movement. No rhonchi, wheezing, rales. Abdomen: Soft with RUQ tenderness. Normal bowel sounds. No distension. No rebound or guarding. Back: No CVA tenderness. Skin: Warm and dry. Neuro: Alert and oriented X 3. I reviewed all diagnostic test results: My review of the US gallbladder report is: Cholelithiasis My review of the CT abdomen/pelvis report is: Cholelithiasis Blood tests and urine tests unremarkable At this point, diagnoses include: Gallstones Treatment here included: IVF Toradol 30 IV Zofran 4 IV Dilaudid 1 IV Significant improvement noted. I discussed the case with our surgeon, Dr. Jeffrey.? About the presentation and exam and diagnostics and treatments here.? And need of further care in the hospital.? Recommended outpatient followup with him. Based on my best medical judgment, made decision no further evaluation or treatment indicated at this time. Patient understands and agrees to the discharge instructions customized and printed, see below. Discharge Instructions from Dr. Joy: 1. After evaluation, your symptoms are due to gallstone(s).? You need gallbladder to help digest fatty foods. 2. So to prevent future attacks, avoid all fatty and oily and greasy and buttery and dairy foods.? This usually means take out and fast food restaurants. 3. Zofran for nausea/vomiting.? Percocet as for severe pain.? Clear liquid diet for 24 hours then advance diet slowly as tolerated. 4. See Dr. Jeffrey (I talked to him about your case and he recommended outpatient follow-up with him for elective surgery) this week for further care. LORENA JEFFREY MD,?[address] [facility], [facility], [place] [address], , 5. Seek immediate medical care with intolerable pain, fever, or with any concerns. Bert Joy MD Patient data External records reviewed:: [facility] previous records Clinical information provided by:: patient Social determinants that could affect healthcare access:: none Patient has the following chronic illnesses:: Cholelithiasis with repeat gallbladder attacks How is presenting disease/condition affected by chronic disease/condition?: caused by Evaluation data The following diagnostics were reviewed and interpreted by me:: lab results and radiology exam(s) Lab and/or radiology exams considered but not ordered:: None Interpretation Summary: I reviewed all diagnostic test results: My review of the US gallbladder report is: Cholelithiasis My review of the CT abdomen/pelvis report is: Cholelithiasis Blood tests and urine tests unremarkable Medications / Prescriptions Medications or Prescriptions considered but not ordered:: None Medication administrations:: Medication Administration History Discontinued Medications Hydromorphone HCl (Hydromorphone Inj 2 Mg/Ml Vial) 1 mg IVP X1 ONE; Protocol Stop: 08/20/25 09:29 Last Admin: 08/20/25 09:57 Dose: 1 mg Documented By: BY Sodium Chloride (Ns) 1,000 mls @ 999 mls/hr IV .Q1H1M ONE Stop: 08/20/25 10:28 Last Infusion: 08/20/25 10:41 Dose: Infused Documented By: Admin: 08/20/25 09:40 Dose: 999 mls/hr Documented By: BY Ketorolac Tromethamine (Ketorolac Inj 30 Mg/Ml Vial) 30 mg IVP X1 ONE; Protocol Stop: 08/20/25 09:29 Last Admin: 08/20/25 09:56 Dose: 30 mg Documented By: BY Ondansetron HCl (Ondansetron Inj 2 Mg/Ml Inj 2 Ml) 4 mg IVP X1 ONE; Protocol Stop: 08/20/25 09:29 Last Admin: 08/20/25 09:56 Dose: 4 mg Documented By: BY Treatment here included: IVF Toradol 30 IV Zofran 4 IV Dilaudid 1 IV Consultations Consultation(s) initiated? (list below): Yes Consultation #1 (Physician, Specialty, Details): I discussed the case with our surgeon, Dr. Jeffrey.? About the presentation and exam and diagnostics and treatments here.? And need of further care in the hospital.? Recommended outpatient followup with him. Diagnosis Differential diagnosis abdominal pain: abdominal pain, calculus of kidney and other (cholelithiasis, cholecystitis ) Most likely diagnosis given after review of the tests above:: Gallstones Admission Indicated Admission indicated?: not indicated Explain why admission is indicated or not indicated:: I discussed the case with our surgeon, Dr. Jeffrey.? About the presentation and exam and diagnostics and treatments here.? And need of further care in the hospital.? Recommended outpatient followup with him. Admission Request Was there a request for admission?: No Disposition Plan Disposition Plan: Discharge Discharge Attestation Discharge Attestation: The patient and all family members were given an opportunity to ask questions and understood the discharge instructions. Discharge instructions specifically effects, indications for sooner follow up or return to the emergency department, and the expected course of current diagnosis. Patient condition: Stable Discharge Plan Plan Patient Disposition: HOME (Self Care) Prescriptions/Referrals Prescriptions/Med Rec: New oxycodone-acetaminophen [Percocet] 5-325 mg tablet 2 tab PO Q8H MDD 6 PRN (Reason: pain) Qty: 20 0RF ondansetron 4 mg tablet,disintegrating 4 mg PO TID PRN (Reason: nausea and vomiting) 30 Days Qty: 10 0RF No Action ondansetron 4 mg tablet,disintegrating 4 mg PO Q6H PRN (Reason: nausea and vomiting) Qty: 20 0RF Referrals: Blaze Mishra MD [Primary Care Provider, Family Practice] - In 1 week Problem List Clinical Impression: Gallstones Patient/Caregiver Discharge Instructions Discharge Activity: activity as tolerated Education Materials: ED Gallstones with Biliary Colic Additional Instructions: Discharge Instructions from Dr. Joy: 1. After evaluation, your symptoms are due to gallstone(s).? You need gallbladder to help digest fatty foods. 2. So to prevent future attacks, avoid all fatty and oily and greasy and buttery and dairy foods.? This usually means take out and fast food restaurants. 3. Zofran for nausea/vomiting.? Percocet as for severe pain.? Clear liquid diet for 24 hours then advance diet slowly as tolerated. 4. See Dr. Jeffrey (I talked to him about your case and he recommended outpatient follow-up with him for elective surgery) this week for further care. LORENA JEFFREY MD,?[address] [facility], [address], [place] [address], , 5. Seek immediate medical care with intolerable pain, fever, or with any concerns. Print Language: Bengali Stand Alone Forms: [employer] Award Info., Patient Portal Info Letter
[2025-08-20 09:31] VITALS: BP 153/92; PULSE 83; RESP 18; TEMP 36.4; O2SAT 96
--- NOTE | 2025-08-20 09:32 | XR_ITS ---
Examination: CT abdomen and pelvis without contrast. Coronal 3-D reconstructions. Sagittal 2-D reconstructions. Date and time of exam: August 20, 2025, 1041 hours INDICATIONS: Generalized abdominal pain and nausea beginning today CTDI: vol (mGy): 18.8 DLP: (mGycm): 1179 Technique: Axial images of the abdomen have been obtained, 3 mm slice thickness Intravenous contrast material has not been administered. Low dose protocols were performed. One or more of the following dose reduction techniques were used; automated exposure control, adjustment of the mA and/or KV according to patient size, use of iterative reconstruction technique. Findings: No focal liver or splenic lesions Splenomegaly AP dimension 15 cm, hepatomegaly 20 cm Gallstones No pancreatic or adrenal mass Aorta normal size No renal or ureteral calculi, no hydronephrosis 16 mm fat-containing umbilical hernia Normal appendix No bowel obstruction Anteverted uterus with enlarged fundus No diverticulitis No bladder mass Mild osteopenia IMPRESSION: Hepatosplenomegaly, clinical correlation advised Cholelithiasis, mild thickening of the gallbladder wall 16 mm fat-containing umbilical hernia Enlarged fundus of the uterus, consider pelvic sonography follow-up
--- NOTE | 2025-08-20 09:32 | XR_ITS ---
Examination: Abdomen sonogram, Limited Date and time of exam: August 20, 2025, 1109 hours INDICATIONS: Right upper abdominal pain today Technique: Real-time mac scale transabdominal sonographic images of the upper abdomen obtained. Findings: Multiple gallstones Borderline thickening gallbladder wall 0.36 cm no edema Common bile duct 0.5 cm no stones Pancreatic head 3.3 cm Liver 20.7 cm fatty infiltration no focal liver lesions Normal hepatopetal portal venous flow Patent IVC IMPRESSION: Cholelithiasis Borderline thickening gallbladder wall, clinical correlation advised As clinically warranted, consider HIDA scan or MRCP follow-up
[2025-08-20] MEDS: SODIUM CHLORIDE 0.9% 1000 ML 1,000 ML 999 ML IV (09:40)
[2025-08-20 09:41] VITALS: BMI 43.8
[2025-08-20 09:47] LABS: Lactate (Lactic Acid) 0.6 mMol/L (0.4-2.0)
[2025-08-20] MEDS: KETOROLAC INJ 30 MG/ML VIAL IVP (09:56)
[2025-08-20] MEDS: ONDANSETRON INJ 2 MG/ML INJ 2 ML 4 MG IVP (09:56)
[2025-08-20] MEDS: HYDROmorphone INJ 2 MG/ML VIAL 1 MG IVP (09:57)
[2025-08-20 10:14] LABS: Basophils # (Auto) 0.0 Thou/mm3 (0.0-0.2); Basophils % (Auto) 0 % (0-2.5); Eosinophils # (Auto) 0.2 Thou/mm3 (0.0-0.5); Eosinophils % (Auto) 2 % (0-10); Hematocrit 34.3 % (36.0-46.0); Hemoglobin 10.4 g/dL (12.0-16.0); Immature Granulocytes Auto 0.10 Thou/mm3 (0.00-0.00); Lymphocytes # (Auto) 2.6 Thou/mm3 (1.0-4.8); Lymphocytes % (Auto) 24 % (10-50); Mean Corpuscular HGB Conc 30.3 g/dl (31.0-37.0); Mean Corpuscular Hemoglobin 23.5 pg (25.0-35.0); Mean Corpuscular Volume 77 fL (80-100); Monocytes # (Auto) 0.4 Thou/mm3 (0.0-0.8); Monocytes % (Auto) 4 % (0-12); Neutrophils # (Auto) 7.3 Thou/mm3 (1.8-7.7); Neutrophils % (Auto) 69 % (37-80); Nucleated Red Blood Cell # 0.00 Thou/mm3 (0.00-0.00); Nucleated Red Blood Cell % 0 /100 WBC (0); Platelet Count 331 Thou/mm3 (140-440); RDW Standard Deviation 55.3 fL (36.4-46.3); Red Blood Count 4.43 Miln/mm3 (4.00-5.20); White Blood Count 10.6 Thou/mm3 (3.6-11.0)
[2025-08-20 10:15] LABS: Alanine Aminotransferase 24 U/L (10-49); Albumin, Serum 4.4 gm/dL (3.5-5.0); Albumin/Globulin Ratio 1.7 (1.2-2.2); Alkaline Phosphatase 281 U/L (46-116); Amylase 73 U/L (30-118); Anion Gap 11 (7-16); Aspartate Amino Transferase 59 U/L (0-34); BUN/Creatinine Ratio 17 Ratio (12-20); Bilirubin,Direct 0.2 mg/dL (0.0-0.3); Bilirubin,Total 0.4 mg/dL (0.3-1.2); Blood Urea Nitrogen 15 mg/dL (9-23); C-Reactive Protein 2.0 mg/dL (0.0-0.9); Calcium 8.8 mg/dL (8.3-10.6); Calcium (Corrected) 8.8 mg/dL (8.5-10.1); Carbon Dioxide 25.0 mMol/L (20.0-31.0); Chloride 110 mMol/L (98-107); Creatinine (Component) 0.9 mg/dL (0.6-1.3); Estimated Creatinine Clearance 118.6 mL/min (>60); Globulin 2.6 gm/dL (2.3-3.5); Glucose 93 mg/dL (74-106); Lipase 48 U/L (12-53); Magnesium 2.0 mg/dL (1.6-2.6); Osmolality,Calculated 291 (275-295); Potassium 4.0 mMol/L (3.4-5.1); Procalcitonin < 0.04 ng/ml (0.0-0.49); Sodium 146 mMol/L (136-145); Thyroid Stimulating Hormone 2.26 uIU/mL (0.55-4.78); Total Protein 7.0 gm/dL (5.7-8.2); eGFR > 60 See Note
[2025-08-20 10:18] LABS: HCG,Qualitative Serum Negative
[2025-08-20 10:43] LABS: Sed Rate (ESR) 60 mm/hr (0-20)
[2025-08-20 10:59] LABS: Collection Type, Urine Clean Catch
[2025-08-20 11:11] LABS: Bilirubin,Urine Negative (Negative); Blood,Urine 2+ (Negative); Color,Urine Yellow (Lt Yel-Yel); Glucose, Urine Negative (Negative); Ketones,Urine Negative (Negative); Leukocyte Esterase,Urine Positive (Negative); Nitrite,Urine Negative (Negative); PH,Urine 5.5 (5.0-7.0); Protein,Urine Negative (Neg - Trace); RBC,Urine 4 /hpf (0-3); Specific Gravity,Urine 1.022 (1.001-1.035); Squamous Epithelial Cell,Urine 1 /hpf (0-5); Urobilinogen,Urine Negative mg/dL (0.0-1.0); WBC,Urine 15 /hpf (0-5)
[2025-08-20 11:12] LABS: Clarity,Urine Hazy (Clear/Hazy); Culture Indicated,Urine Yes
[2025-08-20 11:53] VITALS: BP 141/83; PULSE 75; RESP 20; TEMP 37.2
[2025-08-20 13:37] VITALS: BP 151/87; PULSE 68; RESP 19; TEMP 36.8; O2SAT 98
== END 2025-08-20 13:41 | disposition home or self-care (01) ==
PROVIDERS: Emergency Provider Emergency Medicine; PCP Family Medicine
DX: K80.20 Calculus of gallbladder without cholecystitis without obstruction (principal)
CPT/HCPCS: 36415; 74176; 76705; 80053; 81001; 82150; 82248; 83605; 83690; 83735; 84145; 84443; 84703; 85025; 85652; 86140; 87040; 87077; 87086; 87186; 96361; 96374; 96375; 99284; J1171; J1885; J2405; J7030